=== PATIENT | female | born 1940 | race Caucasian/White ===

== ENCOUNTER 2018-04-08 20:05 | Observation (INO) | payer MEDICARE, SELFPAY ==
[2018-04-08] VITALS (16 sets, daily range): BP systolic 100–227; BP diastolic 47–211; PULSE 75–132; RESP 14–22; TEMP 36.7; O2SAT 79–100
--- NOTE | 2018-04-08 20:23 | DI.RAD.S_ITS ---
PROCEDURE: XR CHEST 1V INDICATIONS: altered mental status TECHNIQUE: One view of the chest was acquired. COMPARISON: None. FINDINGS: Surgical changes and devices: Cervical fixation plates are partially visualized. Lungs and pleura: There is an overall appearance of increased pulmonary vascularity. Minimal streaky opacity is present in the retrocardiac region. Mediastinum: Mediastinal contours appear normal. Heart size is normal. Bones and chest wall: No suspicious bony lesions. Overlying soft tissues appear unremarkable. IMPRESSION: Increased vascularity suggestive of edema. Streaky retrocardiac opacity is present. This could represent focal edema or developing pneumonia/atelectasis. Dictated by: Dori Abel M.D. on 04/08/2018 at 21:01 Approved by: Dori Abel M.D. on 04/08/2018 at 21:02
[2018-04-08] MEDS: LABETALOL 20 MG/4 ML SYRINGE 10 MG IV (20:26)
[2018-04-08] MEDS: LORazepam 2 MG/ML SYRINGE 1 MG IV (20:32)
[2018-04-08 20:45] LABS: Add Manual Diff / Slide Review NO; Basophils Percent Auto 0.9 % (0-2); Eosinophils Percent Auto 3.6 % (2-4); Hemoglobin 13.5 g/dL (12.0-16.0); Mean Corpuscular HGB Conc 32.9 % (30-36); Mean Corpuscular Hemoglobin 29.6 PG (26-34); Mean Corpuscular Volume 89.9 fL (80-100); Monocytes Percent Auto 10.9 % (3-14); Neutrophils Absolute Auto 3500 /uL (1500-7000); Neutrophils Percent Auto 54.6 % (50-75); Platelet Count 275 X10^3/uL (150-400); Red Blood Cell Count 4.56 X10^6/uL (4.0-5.2); White Blood Cell Count 6.4 X10^3/uL (4.5-11.0)
[2018-04-08 20:49] LABS: Prothrombin Time 34.8 SECONDS (10.1-12.7)
--- NOTE | 2018-04-08 20:51 | ED.AMS ---
HPI - Altered Mental Status General Chief Complaint: Altered Mental Status Stated Complaint: Unresponsive Time Seen by Provider: 04/08/18 20:22 Source: family and EMS Mode of arrival: EMS Limitations: altered mental status History of Present Illness HPI narrative: This is an 78-year-old female who comes to the emergency department with altered mental status. Patient was with family, they state that she stood seems sort of glazed and fell back onto the couch they state that they asked her what was wrong she was able to tell them that she did not feel. They state that they checked her sugar and she told him that she had taken sugar tabs and her sugar had been low. They gave her some juice as well as sandwich recheck her sugar and it was in the 70s. Patient did seem to have trouble getting her words out but otherwise did not have any weakness in her upper extremities, family checked to make sure they equal. They noticed no facial droop. Patient then seemed to get worse and more shaky. EMS came found the sugar was in the 60s gave her a amp of glucose and patient continued to be altered. They also gave her Narcan. Patient did have CBD or ill it did earlier today. This is something new she had never had before. She has known insulin-dependent diabetes, or family states she is on warfarin but they do not know her dosage or if she is still taking it or why she is taking it. Patient did not have any other complaints earlier today. She has chronic back pain which is why she asked about the CBD oil. She lives in [place]. Related Data Home Medications Medication Instructions Recorded Confirmed brinzolamide [Azopt] 1 drp EYE-BOTH BID 04/08/18 04/08/18 dorzolamide-timolol 1 drp EYE-BOTH BID 04/08/18 04/08/18 insulin glargine [Lantus Solostar SUBCUT DAILY 04/08/18 U-100 Insulin] insulin lispro [Humalog KwikPen 04/08/18 Insulin] lisinopril 40 mg PO DAILY 04/08/18 04/08/18 metformin 1 tab PO BID 04/08/18 04/08/18 nystatin [Nyamyc] 1 dose TOPICAL BID 04/08/18 04/08/18 omeprazole 20 mg PO DAILY 04/08/18 04/08/18 sertraline 50 mg PO DAILY 04/08/18 04/08/18 simvastatin 40 mg PO DAILY 04/08/18 04/08/18 tramadol 1 - 2 tab PO QID PRN 04/08/18 04/08/18 warfarin 6 mg PO DAILY 04/08/18 04/08/18 Allergies Allergy/AdvReac Type Severity Reaction Status Date / Time metronidazole [From FLAGYL] Allergy Mild Verified 04/08/18 20:46 meperidine Allergy Unknown Verified 04/08/18 20:46 Review of Systems Review of Systems unobtainable due to mental status Exam Narrative Exam Narrative: GEN: well nourished, well appearing elderly female, patient follows commands, she nods her head when asked if her name is now dry, she squeezes my hand when asked, patient is able to tell me she has pain but not able to me any information patient appears to be in severe distress. HEENT: Atraumatic, pupils are equal round non-reactive to light, 3mm bilaterally, extraocular movements are intact, nares are clear, TMs are clear with no fluid, there is no conjunctival pallor. Throat is clear without any exudates, erythema, tonsillar enlargement or uvular deviation, no facial droop. HEART: Tachycardic but regular rate and rhythm without murmur, clicks, rubs. No carotid bruits, pulses are equal in upper and lower extremities LUNGS:Lungs clear to auscultation, no wheezes, rales, crackles, chest moves symmetrically, no tachypnea. ABD: Bowel sounds normal, soft, non-tender, no guarding, rebound, rigidity, no masses noted, no hepatosplenomegaly :No CVA tenderness MSCL: Non-tender, no muscle atrophy, unable to test patient. NEURO:CN 2-12 intact, sensation normal, reflexes 2/4 upper and lower extremities. finger nose finger test unable to obtain, heel butler test unable to obtain. Tremulous, generalized. No tonic clonic activity. Initial Vital Signs Initial Vital Signs: Vital Signs Temperature 98.1 F 04/08/18 20:17 Pulse Rate 120 H 04/08/18 20:17 Respiratory Rate 20 04/08/18 20:17 Blood Pressure 219/120 H 04/08/18 20:17 Pulse Oximetry 100 04/08/18 20:17 Course Orders Ordered: ED Orders 04/08/18 20:16 EKG-12 Lead Stat 04/08/18 20:17 CT head/brain wo con Stat 04/08/18 20:22 Arterial Blood Gas Stat 04/08/18 20:23 XR chest 1V Stat 04/08/18 20:30 Complete Blood Count AUTO DIFF Stat Comprehensive Metabolic Panel Stat Ethanol (ETOH) Stat Lactate (Lactic Acid) Stat Partial Thromboplastin Time Stat Prolactin Stat Prothrombin Time INR Stat Thyroid Stimulating Hormone Stat Troponin I Stat 04/08/18 20:35 Arterial Blood Gas Stat B Type Natriuretic Peptide Stat 04/08/18 20:42 Urine Culture Stat Urine Drug Screen, Rapid Stat 04/08/18 20:50 CT angio head and neck Stat 04/08/18 21:25 Blood Culture Stat 04/08/18 23:50 Education, smoking cessation ONGOING 04/09/18 MR head/brain wo con Urgent US carotid doppler BI Routine Hemoglobin A1C % Routine 04/09/18 00:05 Consult to Discharge Planning Routine Consult to Occupational Therapy Evaluate & Treat Consult to Physical Therapy Evaluate & Treat 04/09/18 00:06 Consult to Dietitian, Adult Routine 04/09/18 02:00 Urinalysis and Microscopic Stat 04/09/18 05:00 Basic Metabolic Panel DAILY Complete Blood Count AUTO DIFF DAILY 04/10/18 05:00 Basic Metabolic Panel DAILY Complete Blood Count AUTO DIFF DAILY Prothrombin Time INR Routine 04/11/18 05:00 Basic Metabolic Panel DAILY Complete Blood Count AUTO DIFF DAILY 04/12/18 05:00 Basic Metabolic Panel DAILY Complete Blood Count AUTO DIFF DAILY 04/13/18 05:00 Basic Metabolic Panel DAILY Complete Blood Count AUTO DIFF DAILY 04/14/18 05:00 Basic Metabolic Panel DAILY Brinzolamide (Azopt) 1 drops EYE-BOTH BID [facility] Dextrose (D50w) 25 gm IV PRN PRN PRN Reason: Hypoglycemia Dorzolamide/Timolol (Cosopt Eye Drops) 1 drops EYE-BOTH BID [facility] Enalaprilat (Vasotec) 0.625 mg IV Q6H PRN PRN Reason: Hypertension Sodium Chloride (Normal Saline 0.9%) 1,000 mls @ 125 mls/hr IV CONT MICHAEL Last Admin: 04/09/18 01:03 Dose: 125 mls/hr Morphine Sulfate (Morphine Sulfate) 4 mg IV Q4H PRN PRN Reason: Pain, Moderate (4-6) Discontinued Medications Sodium Chloride (Normal Saline 0.9%) 1,000 mls @ 150 mls/hr IV CONT MICHAEL Last Infusion: 04/08/18 23:55 Dose: 0 mls/hr Admin: 04/08/18 21:27 Dose: 150 mls/hr Sodium Chloride (Normal Saline 0.9%) 1,000 mls @ 1,000 mls/hr IV BOLUS ONE Stop: 04/08/18 22:34 Last Admin: 04/08/18 21:40 Dose: Insulin Aspart (Novolog) 1 unit SUBCUT NOW ONE; Protocol Stop: 04/09/18 00:14 Last Admin: 04/09/18 01:13 Dose: Not Given Labetalol HCl (Trandate) 10 mg IV NOW ONE Stop: 04/08/18 20:34 Last Admin: 04/08/18 20:26 Dose: 10 mg Lorazepam (Ativan) 1 mg IV NOW ONE Stop: 04/08/18 20:34 Last Admin: 04/08/18 20:32 Dose: 1 mg Naloxone HCl (Narcan) 0.4 mg IV NOW ONE Stop: 04/08/18 21:51 Last Admin: 04/08/18 21:51 Dose: 0.4 mg Vital Signs - 8 hr 04/08/18 21:00 04/08/18 21:09 04/08/18 21:27 Temperature Pulse Rate 86 90 86 Respiratory Rate 14 22 Blood Pressure Blood Pressure [Left Arm] 114/61 105/75 Pulse Oximetry 91 100 04/08/18 22:32 04/08/18 23:12 04/08/18 23:14 Temperature Pulse Rate 82 81 80 Respiratory Rate 20 20 14 Blood Pressure Blood Pressure [Left Arm] 121/47 L 111/49 L 111/49 L Pulse Oximetry 100 79 L 100 04/08/18 23:19 04/08/18 23:45 04/09/18 01:01 Temperature 97.7 F Pulse Rate 75 74 Respiratory Rate 16 18 Blood Pressure 136/63 Blood Pressure [Left Arm] 120/53 L Pulse Oximetry 100 100 99 04/09/18 04:34 Temperature 97.6 F Pulse Rate 76 Respiratory Rate 16 Blood Pressure 149/89 H Blood Pressure [Left Arm] Pulse Oximetry 99 MDM - Altered Mental Status Lab Data Attestation: I reviewed the patient's lab results. Result diagrams: 04/08/18 20:30 04/08/18 20:30 Lab Results 04/08/18 04/08/18 04/08/18 Range/Units 20:30 20:30 20:30 WBC 6.4 (4.5-11.0) X10^3/uL RBC 4.56 (4.0-5.2) X10^6/uL Hgb 13.5 (12.0-16.0) g/dL Hct 41.0 (36-46) % MCV 89.9 (80-100) fL MCH 29.6 (26-34) PG MCHC 32.9 (30-36) % RDW 14.0 (11.6-14.8) % Plt Count 275 (150-400) X10^3/uL Neut % (Auto) 54.6 (50-75) % Lymph % (Auto) 30.0 (25-40) % [place] % (Auto) 10.9 (3-14) % Eos % (Auto) 3.6 (2-4) % Baso % (Auto) 0.9 (0-2) % Neut # (Auto) 3500 (3051-2529) /uL PT 34.8 H (10.1-12.7) SECONDS INR 3.0 H (0.9-1.3) APTT 54 H (26.4-36.2) SECONDS ABG pH (7.35-7.45) ABG pCO2 (35-45) mmHg ABG pO2 (80-100) mmHg ABG HCO3 (22-26) mmol/L ABG Total CO2 (21-31) mmol/L ABG O2 Saturation (95-100) % ABG Base Excess (-2-2) mmol/L FiO2 Sodium 143 (137-145) mmol/L Potassium 4.8 (3.4-5.1) mmol/L Chloride 103 (98-107) mmol/L Carbon Dioxide 28 (22-32) mmol/L BUN 24 H (7-17) mg/dL Creatinine 0.70 (0.52-1.04) mg/dL Estimated GFR > 60.0 (>60) mL/min BUN/Creatinine Ratio 34.3 H (6-22) Glucose 160 H (80-110) mg/dL Lactate (0.7-2.1) mmol/L Calcium 9.5 (8.4-10.2) mg/dL Total Bilirubin 0.6 (0.2-1.3) mg/dL AST 31 (14-36) IU/L ALT 28 (9-52) IU/L Alkaline Phosphatase 86 (38-126) U/L Troponin I < 0.012 (0.01-0.034) ng/mL B-Natriuretic Peptide (<100) Total Protein 8.0 (6.3-8.2) g/dL Albumin 4.7 (3.5-5.0) g/dL Globulin 3.3 (1.7-4.1) g/dL Albumin/Globulin Ratio 1.4 (1.0-2.8) TSH (0.47-4.68) uIU/mL Prolactin 23.9 H (3.0-18.6) ng/mL Urine Color Urine Appearance Urine pH (4.5-8.0) Ur Specific [place] (1.000-1.035) Urine Protein (Negative) Urine Glucose (UA) (Normal) g/dL Urine Ketones (NEGATIVE) Urine Occult Blood (Negative) Urine Nitrate (Negative) Urine Bilirubin (NEGATIVE) Urine Urobilinogen (0.2) E.U./dL Ur Leukocyte Esterase (NEGATIVE) Urine RBC (0-5/HPF) Urine WBC (0-5/HPF) Urine Bacteria (None) Ur Culture Indicated? Micro UA Comment Urine Opiates Screen (Negative) Ur Oxycodone Screen (Negative) Urine Methadone Screen (Negative) Ur Barbiturates Screen (Negative) U Tricyclic Antidepress (Negative) Ur Phencyclidine Scrn (Negative) Ur Amphetamines Screen (Negative) U Methamphetamines Scrn (Negative) Ur MDMA Scrn (Ecstasy) (Negative) U Benzodiazepines Scrn (Negative) Urine Cocaine Screen (Negative) U Marijuana (THC) Screen (Negative) Ethyl Alcohol < 10 mg/dL 04/08/18 04/08/18 04/08/18 Range/Units 20:30 20:30 20:35 WBC (4.5-11.0) X10^3/uL RBC (4.0-5.2) X10^6/uL Hgb (12.0-16.0) g/dL Hct (36-46) % MCV (80-100) fL MCH (26-34) PG MCHC (30-36) % RDW (11.6-14.8) % Plt Count (150-400) X10^3/uL Neut % (Auto) (50-75) % Lymph % (Auto) (25-40) % [place] % (Auto) (3-14) % Eos % (Auto) (2-4) % Baso % (Auto) (0-2) % Neut # (Auto) (8571-2046) /uL PT (10.1-12.7) SECONDS INR (0.9-1.3) APTT (26.4-36.2) SECONDS ABG pH 7.32 L (7.35-7.45) ABG pCO2 47.7 H (35-45) mmHg ABG pO2 65 L (80-100) mmHg ABG HCO3 25 (22-26) mmol/L ABG Total CO2 26 (21-31) mmol/L ABG O2 Saturation 91 L (95-100) % ABG Base Excess -1.0 (-2-2) mmol/L FiO2 21 Sodium (137-145) mmol/L Potassium (3.4-5.1) mmol/L Chloride (98-107) mmol/L Carbon Dioxide (22-32) mmol/L BUN (7-17) mg/dL Creatinine (0.52-1.04) mg/dL Estimated GFR (>60) mL/min BUN/Creatinine Ratio (6-22) Glucose (80-110) mg/dL Lactate 1.3 (0.7-2.1) mmol/L Calcium (8.4-10.2) mg/dL Total Bilirubin (0.2-1.3) mg/dL AST (14-36) IU/L ALT (9-52) IU/L Alkaline Phosphatase (38-126) U/L Troponin I (0.01-0.034) ng/mL B-Natriuretic Peptide (<100) Total Protein (6.3-8.2) g/dL Albumin (3.5-5.0) g/dL Globulin (1.7-4.1) g/dL Albumin/Globulin Ratio (1.0-2.8) TSH 2.61 (0.47-4.68) uIU/mL Prolactin (3.0-18.6) ng/mL Urine Color Urine Appearance Urine pH (4.5-8.0) Ur Specific [place] (1.000-1.035) Urine Protein (Negative) Urine Glucose (UA) (Normal) g/dL Urine Ketones (NEGATIVE) Urine Occult Blood (Negative) Urine Nitrate (Negative) Urine Bilirubin (NEGATIVE) Urine Urobilinogen (0.2) E.U./dL Ur Leukocyte Esterase (NEGATIVE) Urine RBC (0-5/HPF) Urine WBC (0-5/HPF) Urine Bacteria (None) Ur Culture Indicated? Micro UA Comment Urine Opiates Screen (Negative) Ur Oxycodone Screen (Negative) Urine Methadone Screen (Negative) Ur Barbiturates Screen (Negative) U Tricyclic Antidepress (Negative) Ur Phencyclidine Scrn (Negative) Ur Amphetamines Screen (Negative) U Methamphetamines Scrn (Negative) Ur MDMA Scrn (Ecstasy) (Negative) U Benzodiazepines Scrn (Negative) Urine Cocaine Screen (Negative) U Marijuana (THC) Screen (Negative) Ethyl Alcohol mg/dL 04/08/18 04/08/18 04/09/18 Range/Units 20:35 20:42 02:00 WBC (4.5-11.0) X10^3/uL RBC (4.0-5.2) X10^6/uL Hgb (12.0-16.0) g/dL Hct (36-46) % MCV (80-100) fL MCH (26-34) PG MCHC (30-36) % RDW (11.6-14.8) % Plt Count (150-400) X10^3/uL Neut % (Auto) (50-75) % Lymph % (Auto) (25-40) % [place] % (Auto) (3-14) % Eos % (Auto) (2-4) % Baso % (Auto) (0-2) % Neut # (Auto) (8680-4130) /uL PT (10.1-12.7) SECONDS INR (0.9-1.3) APTT (26.4-36.2) SECONDS ABG pH (7.35-7.45) ABG pCO2 (35-45) mmHg ABG pO2 (80-100) mmHg ABG HCO3 (22-26) mmol/L ABG Total CO2 (21-31) mmol/L ABG O2 Saturation (95-100) % ABG Base Excess (-2-2) mmol/L FiO2 Sodium (137-145) mmol/L Potassium (3.4-5.1) mmol/L Chloride (98-107) mmol/L Carbon Dioxide (22-32) mmol/L BUN (7-17) mg/dL Creatinine (0.52-1.04) mg/dL Estimated GFR (>60) mL/min BUN/Creatinine Ratio (6-22) Glucose (80-110) mg/dL Lactate (0.7-2.1) mmol/L Calcium (8.4-10.2) mg/dL Total Bilirubin (0.2-1.3) mg/dL AST (14-36) IU/L ALT (9-52) IU/L Alkaline Phosphatase (38-126) U/L Troponin I (0.01-0.034) ng/mL B-Natriuretic Peptide < 100 (<100) Total Protein (6.3-8.2) g/dL Albumin (3.5-5.0) g/dL Globulin (1.7-4.1) g/dL Albumin/Globulin Ratio (1.0-2.8) TSH (0.47-4.68) uIU/mL Prolactin (3.0-18.6) ng/mL Urine Color Yellow Urine Appearance Clear Urine pH 5.0 (4.5-8.0) Ur Specific [place] 1.015 (1.000-1.035) Urine Protein Negative (Negative) Urine Glucose (UA) Negative (Normal) g/dL Urine Ketones Negative (NEGATIVE) Urine Occult Blood 2+ H (Negative) Urine Nitrate Negative (Negative) Urine Bilirubin Negative (NEGATIVE) Urine Urobilinogen 0.2 (0.2) E.U./dL Ur Leukocyte Esterase Negative (NEGATIVE) Urine RBC 1-5/hpf (0-5/HPF) Urine WBC 0-1/hpf (0-5/HPF) Urine Bacteria None seen (None) Ur Culture Indicated? Cult not indicated Micro UA Comment Not Reportable Urine Opiates Screen Negative (Negative) Ur Oxycodone Screen Positive H (Negative) Urine Methadone Screen Negative (Negative) Ur Barbiturates Screen Negative (Negative) U Tricyclic Antidepress Negative (Negative) Ur Phencyclidine Scrn Negative (Negative) Ur Amphetamines Screen Negative (Negative) U Methamphetamines Scrn Negative (Negative) Ur MDMA Scrn (Ecstasy) Negative (Negative) U Benzodiazepines Scrn Negative (Negative) Urine Cocaine Screen Negative (Negative) U Marijuana (THC) Screen Positive H (Negative) Ethyl Alcohol mg/dL Point of Care Testing Glucose POC [address] scan - head: Radiologist's impression: motion present throughout the examination, limiting areas of evaluation, However no gross acute intracranial process. Moderate atrophya nd chronic microvascular ischemic changes. Angio Head/neck: Radiologist's impression: [address] [address] [address] Scan Report Signed Patient: Lyubov Prater MR#: [id number] : 1940 Acct:[id number] Age/Sex: 78 / F Date of Service: 04/08/18 Loc: ED Accession Number: [id number] Procedure: CT angio head and neck Ordering Provider: Coby Espino D.O. PROCEDURE: CT ANGIO HEAD AND NECK INDICATIONS: altered mental status, difficulty with speech TECHNIQUE: Pre-contrast 4.5 mm thick sections acquired from the foramen magnum to the vertex. After the administration of intravenous contrast, 1 mm thick sections acquired from the aortic arch through the [place] of [place]. Post-contrast 4.5 mm thick sections then re-acquired from the foramen magnum to the vertex. 3-dimensional bhcteyb-dpsnisjxy-xcbgxeequc (MIP) and/or volume rendering reformats were acquired of the central intracranial vasculature and neck separately. COMPARISON: [facility], CT, CT HEAD/BRAIN WO CON, 04/08/2018, 20:10. FINDINGS: Image quality: Excellent. BRAIN: The ventricular system and cortical sulci demonstrate atrophy, consistent for the patient's stated age. There are areas of hypodensity within the periventricular and subcortical white matter. There is no acute intra-or extra axial fluid collection. No acute hemorrhage, mass lesion or midline shift. Brainstem is unremarkable. Globes are symmetrical. Sinuses are aerated. Osseous structures are intact. HEAD CT ANGIOGRAPHY: Anterior circulation: Intracranial internal carotid arteries are normal in size and flow. The flow within the paired anterior cerebral arteries is normal and symmetric. The flow within the middle cerebral arteries is normal and symmetric. The anterior communicating artery is seen. No aneurysms are seen. Posterior circulation: Visualized portions of the vertebral arteries demonstrate normal caliber, and join to form a normal appearing basilar artery. Flow within the posterior cerebral arteries is normal and symmetric. No aneurysms are seen. NECK CT ANGIOGRAPHY: The origins of the left and right common, internal and external carotid arteries demonstrate no areas of hemodynamically significant stenosis, vascular occlusion or aneurysmal dilation. Origins of the left and right vertebral arteries demonstrate no areas of hemodynamically significant stenosis, vascular occlusion or aneurysmal dilation. Aortic arch demonstrates conventional anatomy. Limited, visualized portions subclavian vasculature are unremarkable. IMPRESSION: 1. No acute intracranial process. 2. Moderate atrophy and chronic microvascular ischemic changes. 3. No areas of hemodynamically significant stenosis, vascular occlusion or aneurysmal dilation within the anterior or posterior circulation. 4. No areas of hemodynamically significant stenosis, vascular occlusion or aneurysmal dilation within the neck vasculature. Any quantitative measurements of stenosis were performed using NASCET criteria. Dictated by: Dori Abel M.D. on 04/08/2018 at 21:23 Approved by: Dori Abel M.D. on 04/08/2018 at 21:31 Chest x-ray: Radiologist's impression: [place] [address] XRay Report Signed Patient: Luybov Prater MR#: [id number] : 1940 Acct:[id number] Age/Sex: 78 / F Date of Service: 04/08/18 Loc: ED Accession Number: [id number] Procedure: XR chest 1V Ordering Provider: Coby Espino D.O. PROCEDURE: XR CHEST 1V INDICATIONS: altered mental status TECHNIQUE: One view of the chest was acquired. COMPARISON: None. FINDINGS: Surgical changes and devices: Cervical fixation plates are partially visualized. Lungs and pleura: There is an overall appearance of increased pulmonary vascularity. Minimal streaky opacity is present in the retrocardiac region. Mediastinum: Mediastinal contours appear normal. Heart size is normal. Bones and chest wall: No suspicious bony lesions. Overlying soft tissues appear unremarkable. IMPRESSION: Increased vascularity suggestive of edema. Streaky retrocardiac opacity is present. This could represent focal edema or developing pneumonia/atelectasis. Dictated by: Dori Abel M.D. on 04/08/2018 at 21:01 Approved by: Dori Abel M.D. on 04/08/2018 at 21:02 ECG Data Attestation: I personally reviewed and interpreted this ECG as follows: Prior ECG tracings: not available for review Interpretation: Sinus rhythm with a rate of 98 P are 151 QRS of 79 QTC of 381. No ST elevation or depression. MDM Narrative Medical decision making narrative: Patient comes in with kind of gradual worsening of altered mental status for about an hour today. Patient by description does not sound clearly like a stroke although could be. She is not a tPA candidate secondary to her elevated INR at 3 because she is on Coumadin. CTA does not show any acute occlusion patient does have an elevated prolactin, she has had some tremor illicit this but no clear seizure-like activity, non witnessed by EMS and by description on from the family. Patient does show some lab abnormalities. She did seem to have a very mild response to Narcan. Discussed with hospitalist area piece got and they except for admission. Spoke with family both sides agree that patient had told the with the past that she wished to be DNR/DNI with aggressive interventions. They are comfortable with medical management. Discharge Plan Departure Patient Disposition: Admitted As Inpatient Clinical Impression: Altered mental status Discharge Date/Time: 04/09/18 00:14 Interventions: ED Discharge Assessment Last Done: 04/09/18 00:14 Admit Date/Time: 04/08/18 22:39 Admit Provider: Nj José
[2018-04-08 20:52] LABS: PTT Partial Thromboplastin Tim 54 SECONDS (26.4-36.2)
[2018-04-08 20:53] LABS: Fractionated Inspired Oxygen 21; HCO3 ABG 25 mmol/L (22-26); Oxygen Saturation ABG 91 % (95-100); PCO2 ABG 47.7 mmHg (35-45); PO2 ABG 65 mmHg (80-100); TCO2 ABG 26 mmol/L (21-31); pH ABG 7.32 (7.35-7.45)
[2018-04-08 20:53] LABS: Alanine Aminotransferase 28 IU/L (9-52); Albumin 4.7 g/dL (3.5-5.0); Albumin Globulin Ratio 1.4 (1.0-2.8); Alkaline Phosphatase 86 U/L (38-126); Aspartate Aminotransferase 31 IU/L (14-36); BUN Creatinine Ratio 34.3 (6-22); Bilirubin Total 0.6 mg/dL (0.2-1.3); Blood Urea Nitrogen 24 mg/dL (7-17); Calcium 9.5 mg/dL (8.4-10.2); Carbon Dioxide 28 mmol/L (22-32); Chloride 103 mmol/L (98-107); Estimated Glomerular Filt Rate > 60.0 mL/min (>60); Ethanol (ETOH) < 10 mg/dL; Globulin 3.3 g/dL (1.7-4.1); Glucose 160 mg/dL (80-110); HEMOLYSIS < 15 (0-50); Lactate (Lactic Acid) 1.3 mmol/L (0.7-2.1); Potassium 4.8 mmol/L (3.4-5.1); Sodium 143 mmol/L (137-145)
--- NOTE | 2018-04-08 20:56 | ED_ITS ---
HPI - Altered Mental Status General Chief Complaint: Altered Mental Status Stated Complaint: Unresponsive Time Seen by Provider: 04/08/18 20:22 Source: family and EMS Mode of arrival: EMS Limitations: altered mental status History of Present Illness HPI narrative: This is an 78-year-old female who comes to the emergency department with altered mental status. Patient was with family, they state that she stood seems sort of glazed and fell back onto the couch they state that they asked her what was wrong she was able to tell them that she did not feel. They state that they checked her sugar and she told him that she had taken sugar tabs and her sugar had been low. They gave her some juice as well as sandwich recheck her sugar and it was in the 70s. Patient did seem to have trouble getting her words out but otherwise did not have any weakness in her upper extremities, family checked to make sure they equal. They noticed no facial droop. Patient then seemed to get worse and more shaky. EMS came found the sugar was in the 60s gave her a amp of glucose and patient continued to be altered. They also gave her Narcan. Patient did have CBD or ill it did earlier today. This is something new she had never had before. She has known insulin-dependent diabetes, or family states she is on warfarin but they do not know her dosage or if she is still taking it or why she is taking it. Patient did not have any other complaints earlier today. She has chronic back pain which is why she asked about the CBD oil. She lives in [place]. Related Data Home Medications Medication Instructions Recorded Confirmed brinzolamide [Azopt] 1 drp EYE-BOTH BID 04/08/18 04/08/18 dorzolamide-timolol 1 drp EYE-BOTH BID 04/08/18 04/08/18 insulin glargine [Lantus Solostar SUBCUT DAILY 04/08/18 U-100 Insulin] insulin lispro [Humalog KwikPen 04/08/18 Insulin] lisinopril 40 mg PO DAILY 04/08/18 04/08/18 metformin 1 tab PO BID 04/08/18 04/08/18 nystatin [Nyamyc] 1 dose TOPICAL BID 04/08/18 04/08/18 omeprazole 20 mg PO DAILY 04/08/18 04/08/18 sertraline 50 mg PO DAILY 04/08/18 04/08/18 simvastatin 40 mg PO DAILY 04/08/18 04/08/18 tramadol 1 - 2 tab PO QID PRN 04/08/18 04/08/18 warfarin 6 mg PO DAILY 04/08/18 04/08/18 Allergies Allergy/AdvReac Type Severity Reaction Status Date / Time metronidazole [From FLAGYL] Allergy Mild Verified 04/08/18 20:46 meperidine Allergy Unknown Verified 04/08/18 20:46 Review of Systems Review of Systems unobtainable due to mental status Exam Narrative Exam Narrative: GEN: well nourished, well appearing elderly female, patient follows commands, she nods her head when asked if her name is now dry, she squeezes my hand when asked, patient is able to tell me she has pain but not able to me any information patient appears to be in severe distress. HEENT: Atraumatic, pupils are equal round non-reactive to light, 3mm bilaterally , extraocular movements are intact, nares are clear, TMs are clear with no fluid , there is no conjunctival pallor. Throat is clear without any exudates, erythema, tonsillar enlargement or uvular deviation, no facial droop. HEART: Tachycardic but regular rate and rhythm without murmur, clicks, rubs. No carotid bruits, pulses are equal in upper and lower extremities LUNGS:Lungs clear to auscultation, no wheezes, rales, crackles, chest moves symmetrically, no tachypnea. ABD: Bowel sounds normal, soft, non-tender, no guarding, rebound, rigidity, no masses noted, no hepatosplenomegaly :No CVA tenderness MSCL: Non-tender, no muscle atrophy, unable to test patient. NEURO:CN 2-12 intact, sensation normal, reflexes 2/4 upper and lower extremities. finger nose finger test unable to obtain, heel butler test unable to obtain. Tremulous, generalized. No tonic clonic activity. Initial Vital Signs Initial Vital Signs: Vital Signs Temperature 98.1 F 04/08/18 20:17 Pulse Rate 120 H 04/08/18 20:17 Respiratory Rate 20 04/08/18 20:17 Blood Pressure 219/120 H 04/08/18 20:17 Pulse Oximetry 100 04/08/18 20:17 Course Orders Ordered: ED Orders 04/08/18 20:16 EKG-12 Lead Stat 04/08/18 20:17 CT head/brain wo con Stat 04/08/18 20:22 Arterial Blood Gas Stat 04/08/18 20:23 XR chest 1V Stat 04/08/18 20:30 Complete Blood Count AUTO DIFF Stat Comprehensive Metabolic Panel Stat Ethanol (ETOH) Stat Lactate (Lactic Acid) Stat Partial Thromboplastin Time Stat Prolactin Stat Prothrombin Time INR Stat Thyroid Stimulating Hormone Stat Troponin I Stat 04/08/18 20:35 Arterial Blood Gas Stat B Type Natriuretic Peptide Stat 04/08/18 20:42 Urine Culture Stat Urine Drug Screen, Rapid Stat 04/08/18 20:50 CT angio head and neck Stat 04/08/18 21:25 Blood Culture Stat 04/08/18 23:50 Education, smoking cessation ONGOING 04/09/18 MR head/brain wo con Urgent US carotid doppler BI Routine Hemoglobin A1C % Routine 04/09/18 00:05 Consult to Discharge Planning Routine Consult to Occupational Therapy Evaluate & Treat Consult to Physical Therapy Evaluate & Treat 04/09/18 00:06 Consult to Dietitian, Adult Routine 04/09/18 02:00 Urinalysis and Microscopic Stat 04/09/18 05:00 Basic Metabolic Panel DAILY Complete Blood Count AUTO DIFF DAILY 04/10/18 05:00 Basic Metabolic Panel DAILY Complete Blood Count AUTO DIFF DAILY Prothrombin Time INR Routine 04/11/18 05:00 Basic Metabolic Panel DAILY Complete Blood Count AUTO DIFF DAILY 04/12/18 05:00 Basic Metabolic Panel DAILY Complete Blood Count AUTO DIFF DAILY 04/13/18 05:00 Basic Metabolic Panel DAILY Complete Blood Count AUTO DIFF DAILY 04/14/18 05:00 Basic Metabolic Panel DAILY Brinzolamide (Azopt) 1 drops EYE-BOTH BID [facility] Dextrose (D50w) 25 gm IV PRN PRN PRN Reason: Hypoglycemia Dorzolamide/Timolol (Cosopt Eye Drops) 1 drops EYE-BOTH BID [facility] Enalaprilat (Vasotec) 0.625 mg IV Q6H PRN PRN Reason: Hypertension Sodium Chloride (Normal Saline 0.9%) 1,000 mls @ 125 mls/hr IV CONT MICHAEL Last Admin: 04/09/18 01:03 Dose: 125 mls/hr Morphine Sulfate (Morphine Sulfate) 4 mg IV Q4H PRN PRN Reason: Pain, Moderate (4-6) Discontinued Medications Sodium Chloride (Normal Saline 0.9%) 1,000 mls @ 150 mls/hr IV CONT MICHAEL Last Infusion: 04/08/18 23:55 Dose: 0 mls/hr Admin: 04/08/18 21:27 Dose: 150 mls/hr Sodium Chloride (Normal Saline 0.9%) 1,000 mls @ 1,000 mls/hr IV BOLUS ONE Stop: 04/08/18 22:34 Last Admin: 04/08/18 21:40 Dose: Insulin Aspart (Novolog) 1 unit SUBCUT NOW ONE; Protocol Stop: 04/09/18 00:14 Last Admin: 04/09/18 01:13 Dose: Not Given Labetalol HCl (Trandate) 10 mg IV NOW ONE Stop: 04/08/18 20:34 Last Admin: 04/08/18 20:26 Dose: 10 mg Lorazepam (Ativan) 1 mg IV NOW ONE Stop: 04/08/18 20:34 Last Admin: 04/08/18 20:32 Dose: 1 mg Naloxone HCl (Narcan) 0.4 mg IV NOW ONE Stop: 04/08/18 21:51 Last Admin: 04/08/18 21:51 Dose: 0.4 mg Vital Signs - 8 hr 04/08/18 21:00 04/08/18 21:09 04/08/18 21:27 Temperature Pulse Rate 86 90 86 Respiratory Rate 14 22 Blood Pressure Blood Pressure [Left Arm] 114/61 105/75 Pulse Oximetry 91 100 04/08/18 22:32 04/08/18 23:12 04/08/18 23:14 Temperature Pulse Rate 82 81 80 Respiratory Rate 20 20 14 Blood Pressure Blood Pressure [Left Arm] 121/47 L 111/49 L 111/49 L Pulse Oximetry 100 79 L 100 04/08/18 23:19 04/08/18 23:45 04/09/18 01:01 Temperature 97.7 F Pulse Rate 75 74 Respiratory Rate 16 18 Blood Pressure 136/63 Blood Pressure [Left Arm] 120/53 L Pulse Oximetry 100 100 99 04/09/18 04:34 Temperature 97.6 F Pulse Rate 76 Respiratory Rate 16 Blood Pressure 149/89 H Blood Pressure [Left Arm] Pulse Oximetry 99 MDM - Altered Mental Status Lab Data Attestation: I reviewed the patient's lab results. Result diagrams: 04/08/18 20:30 04/08/18 20:30 Lab Results 04/08/18 04/08/18 04/08/18 Range/Units 20:30 20:30 20:30 WBC 6.4 (4.5-11.0) X10^3/uL RBC 4.56 (4.0-5.2) X10^6/uL Hgb 13.5 (12.0-16.0) g/dL Hct 41.0 (36-46) % MCV 89.9 (80-100) fL MCH 29.6 (26-34) PG MCHC 32.9 (30-36) % RDW 14.0 (11.6-14.8) % Plt Count 275 (150-400) X10^3/uL Neut % (Auto) 54.6 (50-75) % Lymph % (Auto) 30.0 (25-40) % [place] % (Auto) 10.9 (3-14) % Eos % (Auto) 3.6 (2-4) % Baso % (Auto) 0.9 (0-2) % Neut # (Auto) 3500 (6298-3840) /uL PT 34.8 H (10.1-12.7) SECONDS INR 3.0 H (0.9-1.3) APTT 54 H (26.4-36.2) SECONDS ABG pH (7.35-7.45) ABG pCO2 (35-45) mmHg ABG pO2 (80-100) mmHg ABG HCO3 (22-26) mmol/L ABG Total CO2 (21-31) mmol/L ABG O2 Saturation (95-100) % ABG Base Excess (-2-2) mmol/L FiO2 Sodium 143 (137-145) mmol/L Potassium 4.8 (3.4-5.1) mmol/L Chloride 103 (98-107) mmol/L Carbon Dioxide 28 (22-32) mmol/L BUN 24 H (7-17) mg/dL Creatinine 0.70 (0.52-1.04) mg/dL Estimated GFR > 60.0 (>60) mL/min BUN/Creatinine Ratio 34.3 H (6-22) Glucose 160 H (80-110) mg/dL Lactate (0.7-2.1) mmol/L Calcium 9.5 (8.4-10.2) mg/dL Total Bilirubin 0.6 (0.2-1.3) mg/dL AST 31 (14-36) IU/L ALT 28 (9-52) IU/L Alkaline Phosphatase 86 (38-126) U/L Troponin I < 0.012 (0.01-0.034) ng/mL B-Natriuretic Peptide (<100) Total Protein 8.0 (6.3-8.2) g/dL Albumin 4.7 (3.5-5.0) g/dL Globulin 3.3 (1.7-4.1) g/dL Albumin/Globulin Ratio 1.4 (1.0-2.8) TSH (0.47-4.68) uIU/mL Prolactin 23.9 H (3.0-18.6) ng/mL Urine Color Urine Appearance Urine pH (4.5-8.0) Ur Specific [place] (1.000-1.035) Urine Protein (Negative) Urine Glucose (UA) (Normal) g/dL Urine Ketones (NEGATIVE) Urine Occult Blood (Negative) Urine Nitrate (Negative) Urine Bilirubin (NEGATIVE) Urine Urobilinogen (0.2) E.U./dL Ur Leukocyte Esterase (NEGATIVE) Urine RBC (0-5/HPF) Urine WBC (0-5/HPF) Urine Bacteria (None) Ur Culture Indicated? Micro UA Comment Urine Opiates Screen (Negative) Ur Oxycodone Screen (Negative) Urine Methadone Screen (Negative) Ur Barbiturates Screen (Negative) U Tricyclic Antidepress (Negative) Ur Phencyclidine Scrn (Negative) Ur Amphetamines Screen (Negative) U Methamphetamines Scrn (Negative) Ur MDMA Scrn (Ecstasy) (Negative) U Benzodiazepines Scrn (Negative) Urine Cocaine Screen (Negative) U Marijuana (THC) Screen (Negative) Ethyl Alcohol < 10 mg/dL 04/08/18 04/08/18 04/08/18 Range/Units 20:30 20:30 20:35 WBC (4.5-11.0) X10^3/uL RBC (4.0-5.2) X10^6/uL Hgb (12.0-16.0) g/dL Hct (36-46) % MCV (80-100) fL MCH (26-34) PG MCHC (30-36) % RDW (11.6-14.8) % Plt Count (150-400) X10^3/uL Neut % (Auto) (50-75) % Lymph % (Auto) (25-40) % [place] % (Auto) (3-14) % Eos % (Auto) (2-4) % Baso % (Auto) (0-2) % Neut # (Auto) (3026-1113) /uL PT (10.1-12.7) SECONDS INR (0.9-1.3) APTT (26.4-36.2) SECONDS ABG pH 7.32 L (7.35-7.45) ABG pCO2 47.7 H (35-45) mmHg ABG pO2 65 L (80-100) mmHg ABG HCO3 25 (22-26) mmol/L ABG Total CO2 26 (21-31) mmol/L ABG O2 Saturation 91 L (95-100) % ABG Base Excess -1.0 (-2-2) mmol/L FiO2 21 Sodium (137-145) mmol/L Potassium (3.4-5.1) mmol/L Chloride (98-107) mmol/L Carbon Dioxide (22-32) mmol/L BUN (7-17) mg/dL Creatinine (0.52-1.04) mg/dL Estimated GFR (>60) mL/min BUN/Creatinine Ratio (6-22) Glucose (80-110) mg/dL Lactate 1.3 (0.7-2.1) mmol/L Calcium (8.4-10.2) mg/dL Total Bilirubin (0.2-1.3) mg/dL AST (14-36) IU/L ALT (9-52) IU/L Alkaline Phosphatase (38-126) U/L Troponin I (0.01-0.034) ng/mL B-Natriuretic Peptide (<100) Total Protein (6.3-8.2) g/dL Albumin (3.5-5.0) g/dL Globulin (1.7-4.1) g/dL Albumin/Globulin Ratio (1.0-2.8) TSH 2.61 (0.47-4.68) uIU/mL Prolactin (3.0-18.6) ng/mL Urine Color Urine Appearance Urine pH (4.5-8.0) Ur Specific [place] (1.000-1.035) Urine Protein (Negative) Urine Glucose (UA) (Normal) g/dL Urine Ketones (NEGATIVE) Urine Occult Blood (Negative) Urine Nitrate (Negative) Urine Bilirubin (NEGATIVE) Urine Urobilinogen (0.2) E.U./dL Ur Leukocyte Esterase (NEGATIVE) Urine RBC (0-5/HPF) Urine WBC (0-5/HPF) Urine Bacteria (None) Ur Culture Indicated? Micro UA Comment Urine Opiates Screen (Negative) Ur Oxycodone Screen (Negative) Urine Methadone Screen (Negative) Ur Barbiturates Screen (Negative) U Tricyclic Antidepress (Negative) Ur Phencyclidine Scrn (Negative) Ur Amphetamines Screen (Negative) U Methamphetamines Scrn (Negative) Ur MDMA Scrn (Ecstasy) (Negative) U Benzodiazepines Scrn (Negative) Urine Cocaine Screen (Negative) U Marijuana (THC) Screen (Negative) Ethyl Alcohol mg/dL 04/08/18 04/08/18 04/09/18 Range/Units 20:35 20:42 02:00 WBC (4.5-11.0) X10^3/uL RBC (4.0-5.2) X10^6/uL Hgb (12.0-16.0) g/dL Hct (36-46) % MCV (80-100) fL MCH (26-34) PG MCHC (30-36) % RDW (11.6-14.8) % Plt Count (150-400) X10^3/uL Neut % (Auto) (50-75) % Lymph % (Auto) (25-40) % [place] % (Auto) (3-14) % Eos % (Auto) (2-4) % Baso % (Auto) (0-2) % Neut # (Auto) (4545-8708) /uL PT (10.1-12.7) SECONDS INR (0.9-1.3) APTT (26.4-36.2) SECONDS ABG pH (7.35-7.45) ABG pCO2 (35-45) mmHg ABG pO2 (80-100) mmHg ABG HCO3 (22-26) mmol/L ABG Total CO2 (21-31) mmol/L ABG O2 Saturation (95-100) % ABG Base Excess (-2-2) mmol/L FiO2 Sodium (137-145) mmol/L Potassium (3.4-5.1) mmol/L Chloride (98-107) mmol/L Carbon Dioxide (22-32) mmol/L BUN (7-17) mg/dL Creatinine (0.52-1.04) mg/dL Estimated GFR (>60) mL/min BUN/Creatinine Ratio (6-22) Glucose (80-110) mg/dL Lactate (0.7-2.1) mmol/L Calcium (8.4-10.2) mg/dL Total Bilirubin (0.2-1.3) mg/dL AST (14-36) IU/L ALT (9-52) IU/L Alkaline Phosphatase (38-126) U/L Troponin I (0.01-0.034) ng/mL B-Natriuretic Peptide < 100 (<100) Total Protein (6.3-8.2) g/dL Albumin (3.5-5.0) g/dL Globulin (1.7-4.1) g/dL Albumin/Globulin Ratio (1.0-2.8) TSH (0.47-4.68) uIU/mL Prolactin (3.0-18.6) ng/mL Urine Color Yellow Urine Appearance Clear Urine pH 5.0 (4.5-8.0) Ur Specific [place] 1.015 (1.000-1.035) Urine Protein Negative (Negative) Urine Glucose (UA) Negative (Normal) g/dL Urine Ketones Negative (NEGATIVE) Urine Occult Blood 2+ H (Negative) Urine Nitrate Negative (Negative) Urine Bilirubin Negative (NEGATIVE) Urine Urobilinogen 0.2 (0.2) E.U./dL Ur Leukocyte Esterase Negative (NEGATIVE) Urine RBC 1-5/hpf (0-5/HPF) Urine WBC 0-1/hpf (0-5/HPF) Urine Bacteria None seen (None) Ur Culture Indicated? Cult not indicated Micro UA Comment Not Reportable Urine Opiates Screen Negative (Negative) Ur Oxycodone Screen Positive H (Negative) Urine Methadone Screen Negative (Negative) Ur Barbiturates Screen Negative (Negative) U Tricyclic Antidepress Negative (Negative) Ur Phencyclidine Scrn Negative (Negative) Ur Amphetamines Screen Negative (Negative) U Methamphetamines Scrn Negative (Negative) Ur MDMA Scrn (Ecstasy) Negative (Negative) U Benzodiazepines Scrn Negative (Negative) Urine Cocaine Screen Negative (Negative) U Marijuana (THC) Screen Positive H (Negative) Ethyl Alcohol mg/dL Point of Care Testing Glucose POC [address] scan - head: Radiologist's impression: motion present throughout the examination, limiting areas of evaluation, However no gross acute intracranial process. Moderate atrophya nd chronic microvascular ischemic changes. Angio Head/neck: Radiologist's impression: [address] [address] [address] Scan Report Signed Patient: Lyubov Prater MR#: [id number] : 1940 Acct:[id number] Age/Sex: 78 / F Date of Service: 04/08/18 Loc: ED Accession Number: [id number] Procedure: CT angio head and neck Ordering Provider: Coby Espino D.O. PROCEDURE: CT ANGIO HEAD AND NECK INDICATIONS: altered mental status, difficulty with speech TECHNIQUE: Pre-contrast 4.5 mm thick sections acquired from the foramen magnum to the vertex. After the administration of intravenous contrast, 1 mm thick sections acquired from the aortic arch through the [place] of [place]. Post-contrast 4.5 mm thick sections then re- acquired from the foramen magnum to the vertex. 3-dimensional maximum-intensity- projection (MIP) and/or volume rendering reformats were acquired of the central intracranial vasculature and neck separately. COMPARISON: [facility], CT, CT HEAD/BRAIN WO CON, 04/08/2018, 20:10. FINDINGS: Image quality: Excellent. BRAIN: The ventricular system and cortical sulci demonstrate atrophy, consistent for the patient's stated age. There are areas of hypodensity within the periventricular and subcortical white matter. There is no acute intra-or extra axial fluid collection. No acute hemorrhage, mass lesion or midline shift. Brainstem is unremarkable. Globes are symmetrical. Sinuses are aerated. Osseous structures are intact. HEAD CT ANGIOGRAPHY: Anterior circulation: Intracranial internal carotid arteries are normal in size and flow. The flow within the paired anterior cerebral arteries is normal and symmetric. The flow within the middle cerebral arteries is normal and symmetric. The anterior communicating artery is seen. No aneurysms are seen. Posterior circulation: Visualized portions of the vertebral arteries demonstrate normal caliber, and join to form a normal appearing basilar artery. Flow within the posterior cerebral arteries is normal and symmetric. No aneurysms are seen. NECK CT ANGIOGRAPHY: The origins of the left and right common, internal and external carotid arteries demonstrate no areas of hemodynamically significant stenosis, vascular occlusion or aneurysmal dilation. Origins of the left and right vertebral arteries demonstrate no areas of hemodynamically significant stenosis, vascular occlusion or aneurysmal dilation. Aortic arch demonstrates conventional anatomy. Limited, visualized portions subclavian vasculature are unremarkable. IMPRESSION: 1. No acute intracranial process. 2. Moderate atrophy and chronic microvascular ischemic changes. 3. No areas of hemodynamically significant stenosis, vascular occlusion or aneurysmal dilation within the anterior or posterior circulation. 4. No areas of hemodynamically significant stenosis, vascular occlusion or aneurysmal dilation within the neck vasculature. Any quantitative measurements of stenosis were performed using NASCET criteria. Dictated by: Dori Abel M.D. on 04/08/2018 at 21:23 Approved by: Dori Abel M.D. on 04/08/2018 at 21:31 Chest x-ray: Radiologist's impression: [place] [address] XRay Report Signed Patient: Lyubov Prater MR#: [id number] : 1940 Acct:[id number] Age/Sex: 78 / F Date of Service: 04/08/18 Loc: ED Accession Number: [id number] Procedure: XR chest 1V Ordering Provider: Coby Espino D.O. PROCEDURE: XR CHEST 1V INDICATIONS: altered mental status TECHNIQUE: One view of the chest was acquired. COMPARISON: None. FINDINGS: Surgical changes and devices: Cervical fixation plates are partially visualized. Lungs and pleura: There is an overall appearance of increased pulmonary vascularity. Minimal streaky opacity is present in the retrocardiac region. Mediastinum: Mediastinal contours appear normal. Heart size is normal. Bones and chest wall: No suspicious bony lesions. Overlying soft tissues appear unremarkable. IMPRESSION: Increased vascularity suggestive of edema. Streaky retrocardiac opacity is present. This could represent focal edema or developing pneumonia/atelectasis. Dictated by: Dori Abel M.D. on 04/08/2018 at 21:01 Approved by: Dori Abel M.D. on 04/08/2018 at 21:02 ECG Data Attestation: I personally reviewed and interpreted this ECG as follows: Prior ECG tracings: not available for review Interpretation: Sinus rhythm with a rate of 98 P are 151 QRS of 79 QTC of 381. No ST elevation or depression. MDM Narrative Medical decision making narrative: Patient comes in with kind of gradual worsening of altered mental status for about an hour today. Patient by description does not sound clearly like a stroke although could be. She is not a tPA candidate secondary to her elevated INR at 3 because she is on Coumadin. CTA does not show any acute occlusion patient does have an elevated prolactin, she has had some tremor illicit this but no clear seizure-like activity, non witnessed by EMS and by description on from the family. Patient does show some lab abnormalities. She did seem to have a very mild response to Narcan. Discussed with hospitalist area piece got and they except for admission. Spoke with family both sides agree that patient had told the with the past that she wished to be DNR/DNI with aggressive interventions. They are comfortable with medical management. Discharge Plan Departure Patient Disposition: Admitted As Inpatient Clinical Impression: Altered mental status Discharge Date/Time: 04/09/18 00:14 Interventions: ED Discharge Assessment Last Done: 04/09/18 00:14 Admit Date/Time: 04/08/18 22:39 Admit Provider: Nj José
[2018-04-08 21:04] LABS: Urine Amphetamines Negative (Negative); Urine Barbiturates Negative (Negative); Urine Benzodiazepines Negative (Negative); Urine Cocaine Negative (Negative); Urine MDMA Negative (Negative); Urine Methadone Negative (Negative); Urine Methamphetamines Negative (Negative); Urine Morphine/Opi cutoff 2000 Negative (Negative); Urine Oxycodone Positive (Negative); Urine Phencyclidine Negative (Negative); Urine Tetrahydrocannabinol Positive (Negative); Urine Tricyclic Antidepressant Negative (Negative)
[2018-04-08 21:10] LABS: Prolactin 23.9 ng/mL (3.0-18.6)
[2018-04-08 21:12] LABS: Troponin I < 0.012 ng/mL (0.01-0.034)
[2018-04-08] MEDS: SODIUM CHLORIDE 0.9% 1,000 ML 150 ML IV (21:27)
--- NOTE | 2018-04-08 21:40 | PC.NURSE ---
Pts NS infusion increased from 150ml/hr to 500ml/hr per provider. Pt appears in no acute distress at this time.
[2018-04-08 21:41] LABS: B Type Natriuretic Peptide < 100 (<100)
[2018-04-08] MEDS: NALOXONE 0.4 MG/ML VIAL IV (21:51)
[2018-04-08 23:00] LABS: Thyroid Stimulating Hormone 2.61 uIU/mL (0.47-4.68)
--- NOTE | 2018-04-08 23:25 | PC.NURSE ---
Hospitalist at bedside assessing pt for admission
[2018-04-09] VITALS (7 sets, daily range): BP systolic 136–156; BP diastolic 63–89; PULSE 68–94; RESP 16–20; TEMP 36.3–36.6; O2SAT 95–100
--- NOTE | 2018-04-09 | DI.ECHO.S_ITS ---
[facility] +---------+ : : [address] : : : : [id number] : : : : Phone: [phone] Echocardiogram Report + + :Name: MARILYN SAUL Study Date: 04/10/2018 Height: 61 in : :[facility] Weight: 177 lb : : Gender: Female BSA: 1.8 m2 : :: 1940 Age: 78 yrs BP: 136/63 mmHg: :Reason For Study: Syncope : : Performed By: Gem Salazar : :Referring: UNSPECIFIED : + + Interpretation Summary The study quality is suboptimal. The left ventricle is normal in size, wall thickness, and systolic function without any focal wall motion abnormalities. The ejection fraction is estimated to be 60-65%. The right ventricle grossly appears normal in size with probable normal systolic function. Injection of contrast documented no interatrial shunt. The right ventricular systolic pressure is estimated to be at least 45 mmHg based on an estimated right atrial pressure of 3 mm Hg. There is no prior echocardiogram noted for this patient. Procedure: A two-dimensional transthoracic echocardiogram with color flow and Doppler was performed. The study quality was technically adequate. There is no prior echocardiogram noted for this patient. The patient was in normal sinus rhythm during the exam. Left Ventricle: The left ventricle is normal in size, wall thickness, and systolic function without any focal wall motion abnormalities. The ejection fraction is estimated to be 60-65%. Diastolic function could not be accurately assessed due to contradictory data. Right Ventricle: The right ventricle grossly appears normal in size with probable normal systolic function. Atria: The left atrial size is normal. Right atrial size is normal. Injection of contrast documented no interatrial shunt. Mitral Valve: The mitral valve is normal in structure and function. There is no mitral valve stenosis. There is trace mitral regurgitation. Aortic Valve: The aortic valve opens well. There is mild aortic valve sclerosis. The aortic valve is not well visualized. Probably trileaflet. There is no aortic valve stenosis. No aortic regurgitation is present. Tricuspid Valve: The tricuspid valve leaflets are thin and pliable. There is mild tricuspid regurgitation. The right ventricular systolic pressure is estimated to be at least 45 mmHg based on an estimated right atrial pressure of 3 mm Hg. Pulmonic Valve: The pulmonic valve is not well visualized. Great Vessels: The aortic root is normal size. The dimensions of the ascending aorta are normal. The aortic arch is normal in size. The IVC is of normal diameter and collapses greater than 50% with a sniff. This suggests a low right atrial pressure of 3 mm Hg. Pericardium/ Pleura There is no pericardial effusion. There is no pleural effusion. MMode/2D Measurements & Calculations LVIDd: 4.5 cm Ao root diam: 2.9 cm LVIDs: 2.7 cm Aortic Jxn: 2.5 cm FS: 39.0 % asc Aorta Diam: 2.8 cm EPSS: 0.56 cm Ao Arch Diam (Prox Trans): 2.5 cm IVSd: 0.75 cm LVPWd: 0.80 cm LV junior. diameter/BSA (cm/m^2): 2.5 LV sys. diameter/BSA (cm/m^2): 1.5 LA dimension: 3.5 cm RA long axis: 4.0 cm LA A2 area: 19.8 cm2 RA area: 12.9 cm2 LA A4 area: 17.3 cm2 RA vol: 35.2 ml LA length (vol): 4.3 cm RA : 19.6 ml/m2 LA vol: 67.4 ml IVC diam: 1.7 cm LA vol index: 37.6 ml/m2 RVDd major: 5.3 cm RVD1 (basal): 3.0 cm RVD2 (mid): 3.0 cm Doppler Measurements & Calculations Ao V2 max: 157.6 cm/sec MV E max alex: 105.8 cm/sec Ao V2 mean: 112.2 cm/sec MV A max alex: 74.1 cm/sec Ao max P.9 mmHg MV E/A: 1.4 Ao mean P.7 mmHg Med Peak E' Alex: 8.0 cm/sec Ao V2 VTI: 36.7 cm E/E' med: 13.2 Lat Peak E' Alex: 8.2 cm/sec E/E' lat: 12.9 E/e' average: 13.1 MV dec time: 0.22 sec MV P1/2t: 64.3 msec TR max alex: 324.1 cm/sec MV P1/2t max alex: 105.3 cm/sec TR max P.0 mmHg MVA(P1/2t): 3.4 cm2 PA V2 max: 79.5 cm/sec PA V2 mean: 54.1 cm/sec PA mean P.3 mmHg PA Accel Time: 0.21 sec Electronically signed by: Chema Raymundo M.D. on Reading Physician:04/10/2018 03:37 PM
--- NOTE | 2018-04-09 | DI.MRI.S_ITS ---
PROCEDURE: MR HEAD/BRAIN WO CON INDICATIONS: Acute altered mental status, history of prior CVA TECHNIQUE: Non-contrast axial T1 spin echo, axial T2 fast spin echo, sagittal and axial FLAIR, coronal T2 fast spin echo, axial gradient echo, axial diffusion and ADC through the brain. COMPARISON: [facility], CT, CT HEAD/BRAIN WO CON, 04/08/2018, 20:10. [facility], CT, CT ANGIO HEAD AND NECK, 04/08/2018, 20:56. FINDINGS: Image quality: Excellent. CSF spaces: Ventricles appear symmetric in size and shape. Basal cisterns are patent. No extra-axial fluid collections. Brain: No intracranial bleeds or mass effects. There is cerebral volume loss for age. There are periventricular and deep white matter chronic small vessel ischemic changes. Brainstem appears normal. Diffusion-weighted images show no acute ischemic insults. No chronic ischemic insults. Normal intravascular flow voids are present. Skull and face: Calvarial bone marrow is normal in signal. Orbits are normal. Sinuses: Sinuses and mastoids are clear. IMPRESSION: 1. No evidence of acute infarction. No intracranial bleed or midline shift. 2. Mild atrophy and mild periventricular white matter chronic ischemic microangiopathic changes. Dictated by: Andrés Ribeiro M.D. on 04/09/2018 at 10:27 Approved by: Andrés Ribeiro M.D. on 04/09/2018 at 10:28
--- NOTE | 2018-04-09 00:30 | PM.HP.1 ---
History of Present Illness Date Patient Seen: 04/08/18 Time Patient Seen: 23:20 Chief complaint: Unresponsive Narrative: This is an 78-year-old female patient who was brought into the ER by family with complaints of altered mental status. The patient is presently visiting from [facility] then had an abrupt onset of altered mental status approximately 5 hr ago. The patient was called to dinner by family she stood up from her chair and her son reports that she ?just there and had a grimace on her face?. The patient slumped back into the chair with no associated trauma or injury. The patient had no seizure activity or facial drooping. The family reports she had difficulty speaking and has a history of diabetes . The family checked blood sugar found her glucose level to be 70 mg/dL and gave her orange juice and a sandwich however the patient had a difficult time holding the glass and was tremulous. The patient did not improve following eating and continued to have worsening difficulty speaking appearing to be able to understand and follow commands but per the family felt she could not express herself. Patient has a history of a stroke 12 years ago for which she has been on warfarin and presently has an INR of 3.0 and no residual neurological deficits. The family also says that prior to give the patient had taken a CBD pill for chronic back pain. They report no other prodromal symptoms such as headache complaints of dizziness or chest pain and no shortness of breath. The family reports the patient made a statement that ?I am dying?. In the ER the patient had no apparent lateralizing symptoms of stroke but continued to be altered. EMS obtained a glucose level of 60 and she has been given additional dextrose. She also has been taking oxycodone for pain and was given Narcan both no change in sensorium. She was hypertensive and tachycardic given labetalol 10 mg as well as Ativan. Patient has additional history of recurrent UTIs and has a catheter placed with urine sent for culture. He states the patient's normal baseline is independent in all ADLs but has had prior back surgery with degenerative disc disease and has had more difficulty ambulating requiring the assistance of a cane. Patient History Medical History Hyperlipidemia (Acute) GERD (gastroesophageal reflux disease) (Acute) Chronic back pain (Acute) Current use of pen[facility]iary anticoagulation (Acute) Hypertension (Acute) Status post CVA (Acute) Insulin dependent diabetes mellitus (Acute) Surgical History Previous back surgery (Acute) Meds Home Medications Medication Instructions Recorded Confirmed Type brinzolamide [Azopt] 1 drp EYE-BOTH BID 04/08/18 04/08/18 History dorzolamide-timolol 1 drp EYE-BOTH BID 04/08/18 04/08/18 History insulin glargine [Lantus Solostar SUBCUT DAILY 04/08/18 History U-100 Insulin] insulin lispro [Humalog KwikPen 04/08/18 History Insulin] lisinopril 40 mg PO DAILY 04/08/18 04/08/18 History metformin 1 tab PO BID 04/08/18 04/08/18 History nystatin [Nyamyc] 1 dose TOPICAL BID 04/08/18 04/08/18 History omeprazole 20 mg PO DAILY 04/08/18 04/08/18 History sertraline 50 mg PO DAILY 04/08/18 04/08/18 History simvastatin 40 mg PO DAILY 04/08/18 04/08/18 History tramadol 1 - 2 tab PO QID PRN 04/08/18 04/08/18 History warfarin 6 mg PO DAILY 04/08/18 04/08/18 History Allergies Allergy/AdvReac Type Severity Reaction Status Date / Time metronidazole [From FLAGYL] Allergy Mild Verified 04/08/18 20:46 meperidine Allergy Unknown Verified 04/08/18 20:46 Review of Systems Review of Systems unobtainable due to mental status (Altered mental status, unable to verbalize, only follows simple commands) and other (Minimal information obtained from the patient's son Sammy Coyner and his . The patient only arrived day before yesterday for the holidays) Constitutional Constitutional: Reports system reviewed and no additional complaints, except as documented, Denies frequent falls and Denies headache(s) Eyes Eyes: Denies loss of vision, Denies other visual disturbances and Denies sensitivity to light ENT Ears, Nose, Mouth, and Throat: No difficulty swallowing, No headache(s), No hearing loss, No nasal congestion, No neck pain, Yes poor balance and Yes other (No dysphagia) Cardiovascular Cardiovascular: Denies chest pain, Denies fainting, Denies irregular heart rhythm, Denies leg swelling, Denies lightheadedness, Denies shortness of breath and Denies shortness of breath with activity Respiratory Respiratory: Denies chest congestion, Denies cough, Denies dyspnea, Denies dyspnea on exertion and Denies wheezing Gastrointestinal Gastrointestinal: Denies abdominal pain, Denies dysphagia, Denies heartburn (Current meds taking omeprazole), Denies nausea and Denies vomiting Genitourinary Genitourinary: Denies urinary frequency, Denies urinary urgency and Reports other (Prior history recurrent UTIs) Musculoskeletal Musculoskeletal: Reports abnormal gait (Related to back pain, ambulates with cane), Denies neck pain, Denies numbness and Denies tingling Integumentary/Breasts Skin/Breast: Denies dry skin, Denies lesions and Denies rash Neurologic Neurologic: Denies abnormal movements, Reports abnormal gait (Related to back pain, ambulates with cane), Denies behavioral changes (Currently taking sertraline), Denies syncope, Denies frequent falls, Denies headache(s), Denies loss of vision, Denies numbness, Denies seizure-like activity, Denies tingling and Reports disequilibrium Psychiatric Psychiatric: Denies behavioral changes (Currently taking sertraline), Denies change in appetite, Denies irritability, Denies panic attacks and Denies hallucinations Endocrine Endocrine: Reports other (Diabetes without report of hyper or hypo glycemic events until today) Hematologic/Lymphatic Hematologic/Lymphatic: Denies easy bleeding, Denies easy bruising and Denies lymphadenopathy Allergic/Immunologic Allergic/Immunologic: Denies wheezing Exam Vital Signs (past 8 hours): - 04/08/18 20:17 04/08/18 20:18 04/08/18 20:20 Temperature 98.1 F Pulse Rate 120 H 117 H 119 H Respiratory Rate 20 20 21 Blood Pressure 219/120 H Blood Pressure [Left Arm] 219/120 H 214/180 H Pulse Oximetry 100 100 97 04/08/18 20:22 04/08/18 20:26 04/08/18 20:30 Temperature Pulse Rate 117 H 100 H 94 H Respiratory Rate 20 22 18 Blood Pressure 219/120 H 220/115 H Blood Pressure [Left Arm] 214/180 H 227/211 H Pulse Oximetry 100 100 94 04/08/18 20:40 04/08/18 20:50 04/08/18 21:00 Temperature Pulse Rate 91 H 89 86 Respiratory Rate 18 17 Blood Pressure Blood Pressure [Left Arm] 130/73 100/60 Pulse Oximetry 93 93 04/08/18 21:09 04/08/18 21:27 04/08/18 22:32 Temperature Pulse Rate 90 86 82 Respiratory Rate 14 22 20 Blood Pressure Blood Pressure [Left Arm] 114/61 105/75 121/47 L Pulse Oximetry 91 100 100 04/08/18 23:12 04/08/18 23:14 04/08/18 23:19 Temperature Pulse Rate 81 80 Respiratory Rate 20 14 Blood Pressure Blood Pressure [Left Arm] 111/49 L 111/49 L Pulse Oximetry 79 L 100 100 04/08/18 23:45 Temperature Pulse Rate 75 Respiratory Rate 16 Blood Pressure Blood Pressure [Left Arm] 120/53 L Pulse Oximetry 100 Oxygen Delivery Method Nasal Cannula Oxygen Flow Rate 4 Const General: well developed, well groomed and lethargic (Response to verbal stimulus) Nutritional Appearance: well nourished Orientation: other (GCS of 8) Limitations: altered mental status (No eye opening, nonverbal, follows simple commands), physical limitations (Weakness) and other limitations (Patient has received Ativan) [facility] Head: normocephalic (Symmetrical facies), atraumatic, No contusion, No hematoma and No laceration Ears: external ears normal and mastoids normal Nose: external nose normal and No epistaxis (No nasal drainage) Mouth: oral mucosae normal, tongue normal and moist mucous membranes Throat: uvula midline Eyes Alignment and Position: alignment abnormal (Slight esotropia) Eyelids: eyelids normal (No ptosis) Conjunctivae: conjunctivae normal Sclera: sclerae normal (Anicteric) Pupils: PERRL (Mid point and reactive) Direct ophthalmoscopy: other (Unable to assess EOMs will not track light, forward gaze) Neck Neck: normal visual inspection, no meningeal signs and trachea midline Thyroid: thyroid normal and no masses Carotids: no bruits Lymphatic: No lymphadenopathy Chest Chest: normal inspection of the chest and normal palpation of entire chest wall (No grimace to palpation) Resp Effort & Inspection: no cough, decreased respiratory effort, not labored, no respiratory distress and symmetric chest movement Auscultation: clear to auscultation bilaterally, no rales, no rhonchi and no wheezes Cardio Heart Sounds: S1 normal, S2 normal and murmur systolic I/ and at the right sternal border Bruits: no carotid bruits Pulses: radial pulses present and dorsalis pedis present GI Palpation: soft, no hepatosplenomegaly, No guarding and No ascites Percussion: dullness to percussion Auscultation: normal bowel sounds General: other (Indwelling Velasquez catheter draining pale yellow clear urine) Back/Spine/Pelvis Back: normal to inspection and No CVA tenderness Skin Other: Skin is warm dry pink with no visible rashes or lesions Neuro General: obtunded (Response to verbal stimulus, nonverbal with no spontaneous eye opening, will follow simple commands) and unable to assess gait Cranial Nerves: tongue midline Cognition: abnormal cognition (As above) Speech: other (Nonverbal) Motor: no pronator drift and movement abnormality noted (Weakness of extremities 1/5 strength bilateral upper right greater than left, spontaneous movement of feet) Plantar Reflexes: Downgoing: bilateral (Brisk) and Withdrawal: bilateral (Minimal) Pupils: Mid position: bilateral and Sluggish: bilateral Objective Labs Result Diagrams: 04/08/18 20:30 04/08/18 20:30 Labs: Laboratory Results - last 24 hr 04/08/18 04/08/18 04/08/18 20:30 20:30 20:30 WBC 6.4 RBC 4.56 Hgb 13.5 Hct 41.0 MCV 89.9 MCH 29.6 MCHC 32.9 RDW 14.0 Plt Count 275 Neut % (Auto) 54.6 Lymph % (Auto) 30.0 [place] % (Auto) 10.9 Eos % (Auto) 3.6 Baso % (Auto) 0.9 Neut # (Auto) 3500 PT 34.8 H INR 3.0 H APTT 54 H ABG pH ABG pCO2 ABG pO2 ABG HCO3 ABG Total CO2 ABG O2 Saturation ABG Base Excess FiO2 Sodium 143 Potassium 4.8 Chloride 103 Carbon Dioxide 28 BUN 24 H Creatinine 0.70 Estimated GFR > 60.0 BUN/Creatinine Ratio 34.3 H Glucose 160 H Lactate Calcium 9.5 Total Bilirubin 0.6 AST 31 ALT 28 Alkaline Phosphatase 86 Troponin I < 0.012 B-Natriuretic Peptide Total Protein 8.0 Albumin 4.7 Globulin 3.3 Albumin/Globulin Ratio 1.4 TSH Prolactin 23.9 H Urine Opiates Screen Ur Oxycodone Screen Urine Methadone Screen Ur Barbiturates Screen U Tricyclic Antidepress Ur Phencyclidine Scrn Ur Amphetamines Screen U Methamphetamines Scrn Ur MDMA Scrn (Ecstasy) U Benzodiazepines Scrn Urine Cocaine Screen U Marijuana (THC) Screen Ethyl Alcohol < 10 04/08/18 04/08/18 04/08/18 20:30 20:30 20:35 WBC RBC Hgb Hct MCV MCH MCHC RDW Plt Count Neut % (Auto) Lymph % (Auto) Independence % (Auto) Eos % (Auto) Baso % (Auto) Neut # (Auto) PT INR APTT ABG pH 7.32 L ABG pCO2 47.7 H ABG pO2 65 L ABG HCO3 25 ABG Total CO2 26 ABG O2 Saturation 91 L ABG Base Excess -1.0 FiO2 21 Sodium Potassium Chloride Carbon Dioxide BUN Creatinine Estimated GFR BUN/Creatinine Ratio Glucose Lactate 1.3 Calcium Total Bilirubin AST ALT Alkaline Phosphatase Troponin I B-Natriuretic Peptide Total Protein Albumin Globulin Albumin/Globulin Ratio TSH 2.61 Prolactin Urine Opiates Screen Ur Oxycodone Screen Urine Methadone Screen Ur Barbiturates Screen U Tricyclic Antidepress Ur Phencyclidine Scrn Ur Amphetamines Screen U Methamphetamines Scrn Ur MDMA Scrn (Ecstasy) U Benzodiazepines Scrn Urine Cocaine Screen U Marijuana (THC) Screen Ethyl Alcohol 04/08/18 04/08/18 20:35 20:42 WBC RBC Hgb Hct MCV MCH MCHC RDW Plt Count Neut % (Auto) Lymph % (Auto) Independence % (Auto) Eos % (Auto) Baso % (Auto) Neut # (Auto) PT INR APTT ABG pH ABG pCO2 ABG pO2 ABG HCO3 ABG Total CO2 ABG O2 Saturation ABG Base Excess FiO2 Sodium Potassium Chloride Carbon Dioxide BUN Creatinine Estimated GFR BUN/Creatinine Ratio Glucose Lactate Calcium Total Bilirubin AST ALT Alkaline Phosphatase Troponin I B-Natriuretic Peptide < 100 Total Protein Albumin Globulin Albumin/Globulin Ratio TSH Prolactin Urine Opiates Screen Negative Ur Oxycodone Screen Positive H Urine Methadone Screen Negative Ur Barbiturates Screen Negative U Tricyclic Antidepress Negative Ur Phencyclidine Scrn Negative Ur Amphetamines Screen Negative U Methamphetamines Scrn Negative Ur MDMA Scrn (Ecstasy) Negative U Benzodiazepines Scrn Negative Urine Cocaine Screen Negative U Marijuana (THC) Screen Positive H Ethyl Alcohol Assessment & Plan Plan: Assessment/Plan Narrative: 1. Altered mental status History of prior stroke 12 years ago for which the patient is on warfarin and simvastatin. Exam is limited due to the administration of Ativan. Abrupt onset of symptoms approximately 5 hr previous, associated with speech impediment and expressive aphasia but able to follow commands. Progressive deterioration with the family calls a glazed expression. Patient is responsive to verbal stimulus and will squeeze hands on command right greater than left No other lateralizing findings no ptosis or facial droop, tongue is midline as is uvula, unable to further assess neurological function CTA is completed and essentially unremarkable. We will keep the patient NPO and obtain a MRI. We have ordered OT PT and will add speech evaluation as the patient becomes more responsive. 2. Hypertension The patient was given labetalol 10 mg the emergency department for tachycardia and hypertension. Patient with stable vitals at the time exam with pressure of 104/74 Considering this may be a neurological event this time will help allow permissive hypertension up to 180 mm Hg Enalaprilat 0.625 mg IV q6 hours as needed blood pressure greater than 180. 3. Diabetes type 2 The patient is on Lantus and lispro as home medications. Patient remains altered despite normalization of blood sugar following a hypoglycemic event This time will continue IV fluid hydration with normal saline at 125 mL/hour Accu-Cheks are ordered q.6 hours and Insulin sliding scale is ordered per medium dose protocol Will also check hemoglobin A1c to ascertain level of glycemic control 4. Long-term use of anticoagulation The patient has been on warfarin, 6 mg p.o. daily with an INR 3.0. Head CT is negative for bleed, no other abnormal bleeding or bruising is identified Will start Lovenox for DVT prophylaxis tomorrow. 5. Chronic back pain Patient with history of degenerative disc disease with him reporting plan for surgical intervention. At baseline patient with altered gait using a cane to ambulate The patient is used oxycodone and CBD pills for pain management. We will follow the patient and assess the need for pain management and intervention 6. Advanced directives Surrogate decision maker is the patient's son Sammy Fernandez, phone number [phone] Per discussion at this time the patient is full code, he has to CPR yes to intubation temporarily. The patient's son states the patient would not want long-term life support treatment. Scores GCS Trinidad coma scale eye opening: None Trinidad coma scale verbal response: None Rajeev coma scale motor response: Obey commands Rajeev coma scale total score: 8
[2018-04-09] MEDS: SODIUM CHLORIDE 0.9% 1,000 ML 125 ML IV ×3 (01:03→17:59)
[2018-04-09 02:11] LABS: Bacteria Urine None Seen
[2018-04-09 02:12] LABS: Appearance Urine UA CLEAR; Bilirubin Urine UA NEGATIVE (NEGATIVE); Color Urine UA YELLOW; Glucose Urine UA NEGATIVE (Normal); Ketones Urine UA NEGATIVE (NEGATIVE); Leukocyte Esterase Urine UA NEGATIVE (NEGATIVE); Nitrite Urine UA NEGATIVE (Negative); Occult Blood Urine UA 2+ (Negative); Protein Urine UA NEGATIVE (Negative); Specific Gravity Urine UA 1.015 (1.000-1.035); Urobilinogen Urine UA 0.2 E.U./dL (0.2)
[2018-04-09 02:21] LABS: Culture Indicated Urine Cult Not Indicated; RBC Urine 1-5/HPF (0-5/HPF); WBC Urine 0-1/HPF (0-5/HPF)
--- NOTE | 2018-04-09 05:35 | PC.NURSE ---
Pt arrived on unit from ED at approx 0100. VSS, O2 sat = 98-99% on 2L. Pt initially responding only to movement slightly to voice, unable to answer admit questions. By 0500 Patient is A and O x 4 but does not remember what happened, knows she is Dora, knows she missed the [employer] libertarian, answered all other questions correctly and passed swallow eval. Serial blood sugars obtained: 102, 96, 88 and given juice when diet changed from NPO to dysphagia. Pt denies pain, nausea and is able to sleep. Pt is from [place], visiting her son, in the company of her other son. Scheduled MRI of brain and US of carotids today.
[2018-04-09 06:21] LABS: Add Manual Diff / Slide Review NO; Basophils Percent Auto 0.6 % (0-2); Eosinophils Percent Auto 1.2 % (2-4); Hematocrit 35.5 % (36-46); Hemoglobin 11.5 g/dL (12.0-16.0); Lymphocytes Percent Auto 24.7 % (25-40); Mean Corpuscular HGB Conc 32.4 % (30-36); Mean Corpuscular Hemoglobin 29.4 PG (26-34); Mean Corpuscular Volume 90.6 fL (80-100); Monocytes Percent Auto 10.7 % (3-14); Neutrophils Absolute Auto 3400 /uL (1500-7000); Neutrophils Percent Auto 62.8 % (50-75); Platelet Count 187 X10^3/uL (150-400); Red Blood Cell Count 3.92 X10^6/uL (4.0-5.2); Red Cell Distribution Width 13.9 % (11.6-14.8); White Blood Cell Count 5.4 X10^3/uL (4.5-11.0)
[2018-04-09 06:37] LABS: Hemoglobin A1C% w Est Avg Glu 6.6 % (4.0-6.0)
[2018-04-09 06:41] LABS: Blood Urea Nitrogen 19 mg/dL (7-17); Calcium 8.5 mg/dL (8.4-10.2); Carbon Dioxide 20 mmol/L (22-32); Chloride 109 mmol/L (98-107); Estimated Glomerular Filt Rate > 60.0 mL/min (>60); Glucose 123 mg/dL (80-110); Sodium 141 mmol/L (137-145)
[2018-04-09 06:42] LABS: HEMOLYSIS 60 (0-50); Potassium 4.7 mmol/L (3.4-5.1)
[2018-04-09] MEDS: LISINOPRIL 20 MG TABLET 40 MG PO (08:52)
[2018-04-09] MEDS: PANTOPRAZOLE 20 MG TABLET PO (08:52)
[2018-04-09] MEDS: METFORMIN XR 500 MG TABLET PO (08:52)
[2018-04-09] MEDS: SERTRALINE 50 MG TABLET PO (08:52)
[2018-04-09] MEDS: DORZOLAMIDE/TIMOLOL OPHTH 10 ML 1 DROPS EYE-BOTH (08:54)
[2018-04-09] MEDS: BRINZOLAMIDE OPHTH 10 ML 1 DROPS EYE-BOTH ×2 (08:54→21:00)
--- NOTE | 2018-04-09 11:11 | PT.IIE ---
Surgical History (Last Updated 04/09/18 @ 00:48 by JUSTUS Allen) Previous back surgery (Acute) Medical History (Last Updated 04/09/18 @ 00:47 by JUSTUS Allen) Hyperlipidemia (Acute) GERD (gastroesophageal reflux disease) (Acute) Chronic back pain (Acute) Current use of exterminator anticoagulation (Acute) Hypertension (Acute) Status post CVA (Acute) Insulin dependent diabetes mellitus (Acute) Physical Therapy Inpatient Evaluation/Re-Eval M1 PT/OT-IP Prior Functional Status Start: 04/09/18 10:48 Freq: NEEDED Status: Active Protocol: Document 04/09/18 10:50 [facility] (Rec: 04/09/18 11:10 [facility] [id number]) Medical Review Prior Functional Status Medical History Reviewed Yes Diet/Fluid Consistency Dysphagia Advanced Communication WNL Mobility and Gait Amb without AD around house and cane for longer bouts Activities of Daily Living and IADL's Indep with ADLs and cooking and cleanining Social History Household Members none Living Arrangements House Number of Floors (Floors) One Floor Number of Stairs To Enter/Railing? no steps to enter Home Environment Standard Height Toilet Tub/Shower Home Equipment Straight Cane Grab Bars Near Toilet Grab Bars In Shower Employment Status Retired Additional Social History Comment Pt lives in [place], but is in [place] visiting her son. She planned to fly to [place] to visit her dgt on . Her son's house does not have a bedroom for her to stay in the house, so she stays in a small house on the property that has several steps to get in with a tub without bars and normal height toilets without bars. M2 PT-IP Current Condition Start: 04/09/18 10:48 Freq: NEEDED Status: Active Protocol: Document 04/09/18 10:50 [facility] (Rec: 04/09/18 11:10 [facility] [id number]) Physical Therapy Current Condition Current Condition Evaluation Date 04/09/18 Treatment Diagnosis unresponsive, weakness Weight Bearing Status Weight Bearing Status Full Weight Bearing M3 PT-IP Subjective Start: 04/09/18 10:48 Freq: NEEDED Status: Active Protocol: Document 04/09/18 10:50 [facility] (Rec: 04/09/18 11:10 [facility] [id number]) Subjective Physical Therapy Visit Type Type Initial Evaluation Visit Start Time 10:15 Visit Stop Time 10:50 Total Visit Minutes 35 Physical Therapy Visit Comments Patient Comments pt is agreeable to get up M4 PT-IP Mobility and Gait Start: 04/09/18 10:48 Freq: NEEDED Status: Active Protocol: Document 04/09/18 10:50 [facility] (Rec: 04/09/18 11:10 [facility] [id number]) PT-Bed Mobility Assessment Supine to Sit Supine to Sit Standby Assistance Bedrails Scooting Scooting to Edge of Bed Standby Assistance PT-Transfer Assessment Sit to and From Stand Sit to and from Stand Contact Guard Assistance Equipment Transfer Assistive Device Gait Belt Front Wheeled Walker Orthotic/Prosthetic Devices or Brace: No Transfers Transfer Destination Chair Comments Mobility Comments Pt amb then sat in chair Gait Assessment Gait Gait Assistance Required: Contact Guard Assist Distance (Feet) 60 Assistive Devices Assistive Device Gait Belt Front Wheeled Walker Gait Deviations General Gait Pattern Decreased Stride Length Decreased Feet Clearance Flexed Trunk Factors Limiting Gait Function Factors Limiting Gait Function Decreased Strength Pain Poor Balance Comments Gait Comments Pt recognized before PT cued her that she was having difficulty staying inside walker but required cuieng during turning to try to stay inside FWW. Pt had overall dec stride length and dec balance , requiring CGA. PT-Balance Assessment Sitting Balance and Reactions Static Sitting Balance Ability Good Dynamic Sitting Balance Ability Good Standing Balance and Reactions Static Standing Balance Ability Fair Dynamic Standing Balance Ability Poor M5 PT-IP Objective Assessments Start: 04/09/18 10:48 Freq: NEEDED Status: Active Protocol: Document 04/09/18 10:50 [facility] (Rec: 04/09/18 11:10 [facility] [id number]) Orientation Orientation/Cognition Level of Alertness Alert Gross Range of Motion Lower Extremity ROM Assessment Right Impaired Impairments RLE strength grossly 3-3+/5 at knee & hip; 5/5 for seated PF /DF testing M6 PT-IP Treatment Start: 04/09/18 10:48 Freq: NEEDED Status: Active Protocol: Document 04/09/18 10:50 [facility] (Rec: 04/09/18 11:10 [facility] [id number]) Physical Therapy Treatment Education Education Provided Safety M7 PT-IP Assessment and Plan Start: 04/09/18 10:48 Freq: NEEDED Status: Active Protocol: Document 04/09/18 10:50 [facility] (Rec: 04/09/18 11:10 [facility] [id number]) PT Summary Assessment and Plan Potential Rehabilitation Potential Good Status of Condition at Evaluation Evolving Summary Impairments Pain Strength Balance Transfers Gait Activity Tolerance Assessment Summary Pt presents with overall weakness & dec balance after unresponsive episode at home. Pt is being tested to determine cause of weakness and episode. She would not be safe at this time to fly alone and would require assistance for safety to get on/off a plane. Pt may require assistance at d/c and will have to discuss with family re : planning as pt typically lives alone. Goals Bed Mobility Goal Independent Transfer Goal Independent Gait Goal Independent Cane Gait Distance 150 Other Goals up/down stairs with rail with min A Days to Meet Goals 4 Frequency of Treatment Frequency Of Treatment Once a Day Treatment Plan Physical Therapy Treatment Plan Bed Mobility Training Transfer Training Gait Training Therapeutic Exercise Balance Retraining Discharge Planning Neuromuscular Re-ed Discharge Recommendations PT Discharge Recommendations Home with Assistance Home Health SNF Rehab Other Discharge Recommendations questionable d/c planning at this time. Pt is likely to require assistance when d/c.
--- NOTE | 2018-04-09 11:32 | CM.DANOTE ---
Discharge Planning/Care Management DCP: assessment: case received, EMR reviewed. Discussed case in Team Rounds. Dr. Ashby agreed with need for RETAIL DEPARTMENT MANAGER eval, order is in for same. RETAIL DEPARTMENT MANAGER will not be here until tomorrow due to holiday schedule. Met now with pt, in process of working with OT Mabel. Introduced self and role. Pt is an 78 year old female who admitted last night to care of the hospitalist team. PCP is in [place]. Payer: [facility]. Admission status: Confirmed now by UR KATERIN York as need to change from an INPT to OBS order as the MRI was - for CVA. Pt confirms she flew here from [place] by herself and has been staying for a couple days with her son Sammy Prater. She is due to take the train to [facility] on to visit her daughter. Both PT and OT note that pt's balance seems a bit off and not at her reported baseline. She has also been placed on a dysphagia diet. Says prior to this admission she has had no dietary restrictions. The RETAIL DEPARTMENT MANAGER eval is pending. P: follow as POC unfolds to assist with d/c issues and options. Full dx appears at this point to be in process. CM Discharge Assessment Start: 04/09/18 11:29 Freq: Status: Active Protocol: Document 04/09/18 11:29 ITV (Rec: 04/09/18 11:32 IT[facility] [id number]) Discharge Planning Assessment History Provided By Patient Medical Record Has Patient been admitted in last 30 No days? Prior Living Arrangements House Comment lives independently in her home in [place], here visiting family for holidays Household Members none Independent with ADL's Yes Is patient alert and oriented? Yes: OT doing cognitive testing DME Already Rented / Owned Cane Comment funtionally independent in her home, uses cane when out of home, prn. Whiteboard Updated in Patient Room with Yes name and ext. # of Research Staff Member Review Status In Process Next Review Type Continued Stay Review
--- NOTE | 2018-04-09 13:31 | OT.IP.EVAL ---
Past Medical History (Last Updated 04/09/18 @ 00:47 by JUSTUS Allen) Hyperlipidemia (Acute) GERD (gastroesophageal reflux disease) (Acute) Chronic back pain (Acute) Current use of intermediate anticoagulation (Acute) Hypertension (Acute) Status post CVA (Acute) Insulin dependent diabetes mellitus (Acute) Surgical History (Last Updated 04/09/18 @ 00:48 by JUSTUS Allen) Previous back surgery (Acute) Occupational Therapy Inpatient Evaluation/Re-Eval M1 PT/OT-IP Prior Functional Status Start: 04/09/18 10:48 Freq: NEEDED Status: Active Protocol: Document 04/09/18 10:50 [facility] (Rec: 04/09/18 11:10 [facility] [id number]) Medical Review Prior Functional Status Medical History Reviewed Yes Diet/Fluid Consistency Dysphagia Advanced Communication WNL Mobility and Gait Amb without AD around house and cane for longer bouts Activities of Daily Living and IADL's Indep with ADLs and cooking and cleaning Social History Household Members none Living Arrangements House Number of Floors (Floors) One Floor Number of Stairs To Enter/Railing? no steps to enter Home Environment Standard Height Toilet Tub/Shower Home Equipment Straight Cane Grab Bars Near Toilet Grab Bars In Shower Employment Status Retired Additional Social History Comment Pt lives in [place], but is in [place] visiting her son. She planned to fly to [place] to visit her dgt on . Her son's house does not have a bedroom for her to stay in the house, so she stays in a small house on the property that has several steps to get in with a tub without bars and normal height toilets without bars. M1 PT/OT-IP Prior Functional Status Start: 04/09/18 13:07 Freq: NEEDED Status: Active Protocol: Document 04/09/18 13:07 [facility] (Rec: 04/09/18 13:31 [facility] [id number]) Medical Review Prior Functional Status Medical History Reviewed Yes Diet/Fluid Consistency Dysphagia Advanced Communication WNL Mobility and Gait Amb without AD around house and cane for longer bouts Activities of Daily Living and IADL's Indep with ADLs and cooking and cleaning, drives only during the day. Prior Functional Level (Other details) Pt states had had one fall in the past 6 months and usually from right foot dragging or tripping over cement curb and also states has difficulty with depth perception. Social History Household Members none Living Arrangements House Number of Floors (Floors) One Floor Number of Stairs To Enter/Railing? no steps to enter Home Environment Standard Height Toilet Tub/Shower Home Equipment Straight Cane Grab Bars Near Toilet Grab Bars In Shower Employment Status Retired Additional Social History Comment Pt lives in [place], but is in [place] visiting her son. She planned to fly to [place] to visit her dgt on . Her son's house does not have a bedroom for her to stay in the house, so she stays in a small house on the property that has several steps to get in with a tub without bars and normal height toilets without bars. M2 OT-IP Current Condition Start: 04/09/18 13:07 Freq: Status: Active Protocol: Document 04/09/18 13:07 [facility] (Rec: 04/09/18 13:31 [facility] [id number]) Occupational Therapy Current Condition Current Condition Evaluation Date 04/09/18 Treatment Diagnosis Altered mental status Diagnosis Onset Date 04/08/18 Weight Bearing Status Weight Bearing Status Full Weight Bearing M3 OT- IP Subjective and Pain Start: 04/09/18 13:07 Freq: Status: Active Protocol: Document 04/09/18 13:07 [facility] (Rec: 04/09/18 13:31 [facility] [id number]) OT- Subjective Occupational Therapy Visit Type Type Initial Evaluation Visit Start Time 11:00 Visit Stop Time 12:00 Total Visit Minutes 60 Occupational Therapy Visit Comments Patient Comments Pt agreeable to do OT eval, pt feels that she is having a hard time thinking. Patient/Caregiver Goals To be able to take the train to see her daughter in [place], [place]. 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 OT ADL-Oral Care General Eval Oral Care Ability Independent OT ADL-Dressing General Eval Lower Body Dressing Ability Minimal Assistance Comments OT Dressing Comments Pt not able to vahe right sock , pt states at home having increased difficulty to do so lately. OT ADL-Toileting Comments OT Toileting Comments Pt has catheter in. M5 OT- IP IADL's Start: 04/09/18 13:07 Freq: Status: Active Protocol: Document 04/09/18 13:07 [facility] (Rec: 04/09/18 13:31 [facility] [id number]) OT-Instrumental Activities of Daily Living Home Safety Awareness Ability to Problem Solve Emergency Able to Problem Solve Situations Medication Management Medication Management Comments Pt states does her own. Money Management Money Management Comments Pt states down her own, and pays bills through the bank. Meal Preparation Meal Preparation Comments Pt states doesn her own. City Treasurer City Treasurer Comments Pt does her own. Driving Driving Comments Pt states just drives during the day. M6 OT- IP Functional Cognition Start: 04/09/18 13:07 Freq: Status: Active Protocol: Document 04/09/18 13:07 [facility] (Rec: 04/09/18 13:31 [facility] [id number]) Cognitive Factors Limiting Selfcare Function Cognitive Ability Level of Alertness Alert Patient Orientation Name Age Birthday Month Year Day of Week Place Situation Attention Span Ability Capable of Focused Attention Capable of Sustained Attention Ability to Follow Commands Able to Follow Multi-Step Commands Memory Description Immediate Intact Short Term Impaired Electric Repair Supervisor Intact Safety Awareness Underestimates Need for Assistance Problem Solving Ability Unable to Identify Errors Needs Assist to Identify Solutions Executive Function Ability Unable to Organize Plans Unable to Remember Details Cognitive Tests SLUMS Pt scored 23/30 normal is 27. Pt having most difficulty with STM, an drawing the numbers on the clock. ACL Pt scored 4.4 out of 6.0 which implies lives with someone who does a daily check on the environment and removes any safety hazzards and solves new problems that may occur. Pt did not have her glasses, but states able to see the assessment and having difficulty to complete versus due to vision deficits. Cognitive Comments Cognitive Assessment Comments Pt able to follow 2-3 step commands. OT- Vision and Hearing OT- Hearing Assessment OT- Hearing Assessment Use of Hearing Aids OT- Vision Assessment Visual Acuity Glasses All The Time Visual Attentiveness WFL Occular Pursuits WFL Visual Wise WFL Vision Assessment Comments Pt states glasses at her son's home. M7 OT- IP Mobility and Balance Start: 04/09/18 13:07 Freq: Status: Active Protocol: Document 04/09/18 13:07 [facility] (Rec: 04/09/18 13:31 [facility] [id number]) OT-Transfer Assessment Sit to and From Stand Sit to and from Stand Contact Guard Assistance 1 Person Assistance Transfers Transfer Ability Contact Guard Assistance 1 Person Assistance Technique Transfer Destination Chair Transfer Technique Stand Step Pivot Devices Transfer Assistive Devices Gait Belt Front Wheeled Walker Comments Mobility Comments Pt needing vc to keep FWW close to her, pt thens to push harder with LUE due to slight weakness to RUE. OT- Balance Assessment Sitting Balance and Reactions Static Sitting Balance Ability Normal Dynamic Sitting Balance Ability Normal Standing Balance and Reactions Static Standing Balance Ability Fair Dynamic Standing Balance Ability Poor M8 OT- IP Objective Assessments Start: 04/09/18 13:07 Freq: Status: Active Protocol: Document 04/09/18 13:07 [facility] (Rec: 04/09/18 13:31 [facility] [id number]) OT Gross Range of Motion Upper Extremity Range of Motion Assessment Within Functional Limits OT Strength Comments Strength Comments RUE 4/5, Lue 4/5 left stick feeder stronger than right. OT- Coordination Assessment Upper Extremity Finger to Nose Test Bilateral UE Impaired Comments Coordination Comments When completed second time, able to direct finger to nose WFL. Decreased FMS for opening items for grooming needs. OT-Muscle Tone Assessment Muscle Tone WNL Yes OT Sensation Assessment Comments Summary Comments Intact for light touch, proprioception and kinesthesia . M9 OT- IP Assessment and Plan Start: 04/09/18 13:07 Freq: Status: Active Protocol: Document 04/09/18 13:07 [facility] (Rec: 04/09/18 13:31 [facility] [id number]) OT Summary Assessment and Plan Potential Rehabilitation Potential Good Analytic Complexity at Evaluation Low Summary OT Impairments Balance Coordination Functional Cognition Functional Mobility Grooming Dressing Toileting Bathing Toilet Transfers Shower Transfers Progress Towards Goals Progressing Toward Goals Slow Progress due to Activity Tolerance Slow Progress due to Cognition Assessment Summary Pt Low complexity and main barrier are activity tolerance , as O2 level then to drop to 82% however able to quickly increase to 97% after taking deep breaths. In addition, O2 monitor attached to her ear and hard to get a good reading . Pt having trouble with short term memory, dynamic balance and now needing use of FWW. Goals Grooming Goal Independent Dressing Goal Standby Assistance Toileting Goal Standby Assistance Bathing Goal Contact Guard Assistance Toilet Transfer Goal Standby Assistance Shower Transfer Goal Standby Assistance Patient/Caregiver Education Goal Caregiver Independent Assisting Patient Days to Meet Goals 5 Frequency of Treatment Frequency Of Treatment Once a Day Treatment Plan OT Treatment Plan ADL Training Functional Cognition Training Functional Mobility Patient/Family Education Discharge Planning Discharge Recommendations OT Discharge Recommendations Home with 24/7 Assist SNF Rehab Other Discharge Recommendations Pending pt's disposition intially if family able to care for her home with 24/7 assist otherwise may need short skilled rehab to be able to get to prior level of independence, as was living alone Home Equipment Needs Shower chair/tub bench,[facility]
[2018-04-09] MEDS: WARFARIN 3 MG TABLET 6 MG PO (17:24)
--- NOTE | 2018-04-09 23:33 | PC.NURSE ---
1500- assumed care of pt from outgoing shift at 1500 this day. Pt awake and laying in bed. pt complains that she is very cold. given warm blankets. discussed plan of care with pt and pt cooperative. Pt completed NIH with me and did well. Pt ambulated steady gait with one person assist to BR. Pt has voided since garrett removal. Pt fluids d/c later in the shift. Pt tolerating oral intake well. no sign/s of aspiration. discussed orders extensively with providers. Pt med rec updated. will continue to monitor. 190- pt has family at bedside. Pt uses call light. belongings and call light within reach. bed alarm on. side rails upx3. will continue to monitor.
[2018-04-10] VITALS (7 sets, daily range): BP systolic 137–195; BP diastolic 72–105; PULSE 81–93; RESP 17–20; TEMP 36.4–36.7; O2SAT 94–100
--- NOTE | 2018-04-10 | DI.US.S_ITS ---
PROCEDURE: US CAROTID DOPPLER BI INDICATIONS: Altered mental status, prior CVA TECHNIQUE: Color and pulse Doppler interrogation was performed of both carotid systems, with image documentation and velocity measurements. COMPARISON: None. FINDINGS: Stenosis calculations are based on SRU (Society of Radiologists in Ultrasound) criteria. Right side: Brachial blood pressure: 138\93 mm Hg. Common carotid artery peak systolic velocity: 63 cm/sec. Internal carotid artery peak systolic velocity: 65 cm/sec. Internal carotid artery end diastolic velocity: 16 cm/sec. External carotid artery peak systolic velocity: 86 cm/sec. ICA/CCA peak systolic ratio: 1.0 . Londono scale imaging description: Mild soft plaque. Percent internal carotid artery stenosis: less than 50% stenosis. Vertebral artery: Flow direction is antegrade. Left side: (IV in place) Common carotid artery peak systolic velocity: 75 cm/sec. Internal carotid artery peak systolic velocity: 59 cm/sec. Internal carotid artery end diastolic velocity: 9 cm/sec. External carotid artery peak systolic velocity: 72 cm/sec. ICA/CCA peak systolic ratio: 0.8 . Londono scale imaging description: Normal. Percent internal carotid artery stenosis: None. Vertebral artery: Flow direction is antegrade. IMPRESSION: Normal on the left, less than 50% stenosis on the right at the internal carotid arteries proximally. Dictated by: Arnav Ellsi M.D. on 04/10/2018 at 10:52 Approved by: Arnav Ellis M.D. on 04/12/2018 at 10:48
--- NOTE | 2018-04-10 05:33 | PC.NURSE ---
Pt. did not sleep last night. Denies any back pain or other discomfort, states I have no pain at all, I just can't sleep. Ambulated in the hallway x2 this shift, denies any dizziness, [place]. Will cont. POc & monitor.
[2018-04-10 05:54] LABS: INR 3.7 (0.9-1.3)
[2018-04-10 06:06] LABS: Alanine Aminotransferase 28 IU/L (9-52); Albumin 4.2 g/dL (3.5-5.0); Albumin Globulin Ratio 1.3 (1.0-2.8); Alkaline Phosphatase 74 U/L (38-126); Aspartate Aminotransferase 34 IU/L (14-36); BUN Creatinine Ratio 16.7 (6-22); Bilirubin Total 0.6 mg/dL (0.2-1.3); Blood Urea Nitrogen 10 mg/dL (7-17); Calcium 9.6 mg/dL (8.4-10.2); Carbon Dioxide 28 mmol/L (22-32); Chloride 103 mmol/L (98-107); Estimated Glomerular Filt Rate > 60.0 mL/min (>60); Globulin 3.2 g/dL (1.7-4.1); Glucose 164 mg/dL (80-110); HEMOLYSIS < 15 (0-50); Magnesium 1.5 mg/dL (1.6-2.3); Potassium 4.4 mmol/L (3.4-5.1); Sodium 142 mmol/L (137-145); Total Protein 7.4 g/dL (6.3-8.2)
[2018-04-10 06:11] LABS: Hematocrit 38.4 % (36-46); Hemoglobin 12.4 g/dL (12.0-16.0); Mean Corpuscular HGB Conc 32.3 % (30-36); Mean Corpuscular Volume 89.7 fL (80-100); Platelet Count 262 X10^3/uL (150-400); Red Blood Cell Count 4.29 X10^6/uL (4.0-5.2); White Blood Cell Count 6.4 X10^3/uL (4.5-11.0)
[2018-04-10 06:31] LABS: Add Manual Diff / Slide Review YES
[2018-04-10 07:03] LABS: Neutrophils Absolute Manual 4928 /uL (3000-5900); Total Cells Counted 100
[2018-04-10 07:04] LABS: RBC Morphology Normal Morphology
[2018-04-10] MEDS: DORZOLAMIDE/TIMOLOL OPHTH 10 ML 1 DROPS EYE-BOTH ×2 (08:59→09:01)
[2018-04-10] MEDS: SERTRALINE 50 MG TABLET PO (09:00)
[2018-04-10] MEDS: LISINOPRIL 20 MG TABLET 40 MG PO (09:00)
[2018-04-10] MEDS: MAGNESIUM SULFATE 2 GM/50 ML PIGGYBACK IV (09:00)
[2018-04-10] MEDS: INSULIN ASPART 100 UNIT/ML INSULN PEN 6 UNIT SUBCUT ×3 (09:05→17:03)
[2018-04-10] MEDS: INSULIN ASPART 100 UNIT/ML INSULN PEN SUBCUT ×4 (09:06→22:01)
[2018-04-10] MEDS: PANTOPRAZOLE 20 MG TABLET PO (09:09)
--- NOTE | 2018-04-10 10:50 | PT.IPTN ---
Physical Therapy Treatment Note M2 PT-IP Current Condition Start: 04/09/18 10:48 Freq: NEEDED Status: Active Protocol: Document 04/09/18 10:50 LR (Rec: 04/09/18 11:10 [facility] [id number]) Physical Therapy Current Condition Current Condition Evaluation Date 04/09/18 Treatment Diagnosis unresponsive, weakness Weight Bearing Status Weight Bearing Status Full Weight Bearing M3 PT-IP Subjective Start: 04/09/18 10:48 Freq: NEEDED Status: Active Protocol: Document 04/10/18 10:50 AB (Rec: 04/10/18 11:36 AB [id number]) Subjective Physical Therapy Visit Type Type Treatment Note Visit Start Time 10:50 Visit Stop Time 11:13 Total Visit Minutes 23 Number of CLASSROOM TECHNOLOGY COACH Visits 0 Physical Therapy Visit Comments Patient Comments pt agreeable to do PT Therapy Pain Assessment Pain Present Pain Present Denied Pain M4 PT-IP Mobility and Gait Start: 04/09/18 10:48 Freq: NEEDED Status: Active Protocol: Document 04/10/18 10:50 AB (Rec: 04/10/18 11:36 AB [id number]) PT-Bed Mobility Assessment Supine to Sit Supine to Sit Standby Assistance Sit to Supine Sit to Supine Standby Assistance Scooting Scooting to Edge of Bed Standby Assistance Scooting Up and Down in Bed Independent PT-Transfer Assessment Sit to and From Stand Sit to and from Stand Standby Assistance Equipment Transfer Assistive Device Gait Belt Straight Cane Orthotic/Prosthetic Devices or Brace: No Transfers Transfer Destination Toilet Transfer Technique pt ambulated to the toilet using SPC Transfer Ability Level of Assist Standby Assistance Comments Mobility Comments BP monitored per doctor's order. found pt supine in bed . BP in supine: 151/90. instructed pt to sit on EOB and completed SBA. BP: 195/ 105; checked again after ~ 2 min: 179/102. pt requesting to use the toilet. instructed pt to sit to stand and completed SBA and used SPC for support: BP: 153/83 after 2 min of standin/81. pt ambulated to the toilet using SPC SBA and completed toileting without assist. ambulated towards the sink using SPC SBA and was able to maintain standing balance SBA using SPC while completing handwashing. pt ambulated back to bed BP sitting on EOB after toiletin/89. completed sit to supine SBA. Data Systems Manager waiting for pt for echo procedure outside pt's room and informed counter intelligence technician that pt is ready for him. M5 PT-IP Objective Assessments Start: 04/09/18 10:48 Freq: NEEDED Status: Active Protocol: Document 04/09/18 10:50 LR (Rec: 04/09/18 11:10 [facility] [id number]) Orientation Orientation/Cognition Level of Alertness Alert Gross Range of Motion Lower Extremity ROM Assessment Right Impaired Impairments RLE strength grossly 3-3+/5 at knee & hip; 5/5 for seated PF /DF testing M6 PT-IP Treatment Start: 04/09/18 10:48 Freq: NEEDED Status: Active Protocol: Document 04/09/18 10:50 LR (Rec: 04/09/18 11:10 [facility] [id number]) Physical Therapy Treatment Education Education Provided Safety M7 PT-IP Assessment and Plan Start: 04/09/18 10:48 Freq: NEEDED Status: Active Protocol: Document 04/10/18 10:50 AB (Rec: 04/10/18 11:36 AB [id number]) PT Summary Assessment and Plan Potential Rehabilitation Potential Good Summary Impairments Pain ROM Strength Balance Coordination Sensation Tone Cognition Bed Mobility Transfers Gait Activity Tolerance Progress Towards Goals Progressing Toward Goals Assessment Summary pt requiring SBA with mobility using SPC. pt with confusion and short term memory problems affecting safety awareness. pt lives in [place] and plans to go visit her daughter in [facility]. pt will need 24/7 assist due to decrease safety awareness. Goals Bed Mobility Goal Independent Transfer Goal Independent Gait Goal Independent Cane Gait Distance 150 Other Goals up/down stairs with rail with min A Days to Meet Goals 4 Frequency of Treatment Frequency Of Treatment Once a Day Treatment Plan Physical Therapy Treatment Plan Bed Mobility Training Transfer Training Gait Training Therapeutic Exercise Balance Retraining Discharge Planning Neuromuscular Re-ed Recommendations To Nursing Amount of Assist Needed 1 Person Assist Discharge Recommendations PT Discharge Recommendations Home with Assistance Home Health SNF Rehab
--- NOTE | 2018-04-10 10:55 | OT.IP.TRT ---
Occupational Therapy Treatment Note M2 OT-IP Current Condition Start: 04/09/18 13:07 Freq: Status: Active Protocol: Document 04/09/18 13:07 [facility] (Rec: 04/09/18 13:31 [facility] [id number]) Occupational Therapy Current Condition Current Condition Evaluation Date 04/09/18 Treatment Diagnosis Altered mental status Diagnosis Onset Date 04/08/18 Weight Bearing Status Weight Bearing Status Full Weight Bearing M3 OT- IP Subjective and Pain Start: 04/09/18 13:07 Freq: Status: Active Protocol: Document 04/10/18 10:32 [facility] (Rec: 04/10/18 10:55 [facility] [id number]) OT- Subjective Occupational Therapy Visit Type Type Treatment Note Visit Start Time 09:25 Visit Stop Time 09:55 Total Visit Minutes 30 Notes Per physician, pt clear to do activity as tolerated and also wanting orthostatic BP done. Occupational Therapy Visit Comments Patient Comments Pt agreeable to do more cognitive assessment. OT Pain Assessment Pain When Pain Assessed At Rest Pain Present Pain Present Denied Pain M4 OT- IP ADL's Start: 04/09/18 13:07 Freq: Status: Active Protocol: Document 04/09/18 13:07 [facility] (Rec: 04/09/18 13:31 [facility] [email or web address]) OT ADL-Grooming General Evaluation Grooming Ability Standby Assistance Areas Needing Assistance Retrieving/Set-up of Grooming Items Comments OT Grooming Comments Assist for set-up due to arthritis in hands. OT ADL-Oral Care General Eval Oral Care Ability Independent OT ADL-Dressing General Eval Lower Body Dressing Ability Minimal Assistance Comments OT Dressing Comments Pt not able to vahe right sock , pt states at home having increased difficulty to do so lately. OT ADL-Toileting Comments OT Toileting Comments Pt has catheter in. M5 OT- IP IADL's Start: 04/09/18 13:07 Freq: Status: Active Protocol: Document 04/09/18 13:07 [facility] (Rec: 04/09/18 13:31 [facility] [email or web address]) OT-Instrumental Activities of Daily Living Home Safety Awareness Ability to Problem Solve Emergency Able to Problem Solve Situations Medication Management Medication Management Comments Pt states does her own. Money Management Money Management Comments Pt states down her own, and pays bills through the bank. Meal Preparation Meal Preparation Comments Pt states does her own. Network Operations Specialist Network Operations Specialist Comments Pt does her own. Driving Driving Comments Pt states just drives during the day. M6 OT- IP Functional Cognition Start: 04/09/18 13:07 Freq: Status: Active Protocol: Document 04/10/18 10:32 [facility] (Rec: 04/10/18 10:55 [facility] [email or web address]) Cognitive Factors Limiting Selfcare Function Cognitive Ability Level of Alertness Alert Patient Orientation Name Date Year Day of Week Place Situation Attention Span Ability Capable of Focused Attention Capable of Sustained Attention Ability to Follow Commands Able to Follow One Step Commands Memory Description Immediate Impaired Short Term Impaired Safety Awareness Underestimates Need for Assistance Problem Solving Ability Unable to Identify Errors Needs Assist to Identify Solutions Executive Function Ability Unable to Switch Focus Unable to Filter Distractions Unable to Remember Details Cognitive Comments Cognitive Assessment Comments Pt scored 300 seconds on the [place] Making Part B and needing 5 cues to complete the task. Per [employer] a score on greater 180 seconds implies person greater chance to get into a car accident. At this time, recommended pt not to drive at thie time. GRAB SETTER just saw patient and pt did not recall that therapist was GRAB SETTER. Pt not able to recall information for swallowing needs, only able to recall 3/6 , after more education 5/6, and at the end only 2/6. OT- Vision and Hearing OT- Hearing Assessment OT- Hearing Assessment Use of Hearing Aids OT- Vision Assessment Visual Acuity Glasses All The Time M7 OT- IP Mobility and Balance Start: 04/09/18 13:07 Freq: Status: Active Protocol: Document 04/09/18 13:07 [facility] (Rec: 04/09/18 13:31 [facility] [email or web address]) OT-Transfer Assessment Sit to and From Stand Sit to and from Stand Contact Guard Assistance 1 Person Assistance Transfers Transfer Ability Contact Guard Assistance 1 Person Assistance Technique Transfer Destination Chair Transfer Technique Stand Step Pivot Devices Transfer Assistive Devices Gait Belt Front Wheeled Walker Comments Mobility Comments Pt needing vc to keep FWW close to her, pt tends to push harder with LUE due to slight weakness to RUE. OT- Balance Assessment Sitting Balance and Reactions Static Sitting Balance Ability Normal Dynamic Sitting Balance Ability Normal Standing Balance and Reactions Static Standing Balance Ability Fair Dynamic Standing Balance Ability Poor M8 OT- IP Objective Assessments Start: 04/09/18 13:07 Freq: Status: Active Protocol: Document 04/09/18 13:07 [facility] (Rec: 04/09/18 13:31 [facility] [email or web address]) OT Gross Range of Motion Upper Extremity Range of Motion Assessment Within Functional Limits OT Strength Comments Strength Comments RUE 4/5, Lue 4/5 left picker box operator stronger than right. OT- Coordination Assessment Upper Extremity Finger to Nose Test Bilateral UE Impaired Comments Coordination Comments When completed second time, able to direct finger to nose WFL. Decreased FMS for opening items for grooming needs. OT-Muscle Tone Assessment Muscle Tone WNL Yes OT Sensation Assessment Comments Summary Comments Intact for light touch, proprioception and kinesthesia . M9 OT- IP Assessment and Plan Start: 04/09/18 13:07 Freq: Status: Active Protocol: Document 04/10/18 10:32 [facility] (Rec: 04/10/18 10:55 [facility] [email or web address]) OT Summary Assessment and Plan Potential Rehabilitation Potential Good Analytic Complexity at Evaluation Low Summary OT Impairments Balance Coordination Functional Cognition Functional Mobility Grooming Dressing Toileting Bathing Toilet Transfers Shower Transfers Progress Towards Goals Slow Progress due to Medical Issues Slow Progress due to Cognition Assessment Summary Pt continues to have difficulty with short term memory and would benefit form short skilled rehab to increase overall activity tolerance and safety for ADL needs as prior pt lives alone. Goals Grooming Goal Independent Dressing Goal Standby Assistance Toileting Goal Standby Assistance Bathing Goal Contact Guard Assistance Toilet Transfer Goal Standby Assistance Shower Transfer Goal Standby Assistance Patient/Caregiver Education Goal Caregiver Independent Assisting Patient Days to Meet Goals 5 Frequency of Treatment Frequency Of Treatment Once a Day Treatment Plan OT Treatment Plan ADL Training Functional Cognition Training Functional Mobility Patient/Family Education Discharge Planning Discharge Recommendations OT Discharge Recommendations Home with 24/7 Assist SNF Rehab Other Discharge Recommendations Pending pt's disposition intially if family able to care for her home with assist otherwise may need short skilled rehab to be able to get to prior level of independence, as was living alone Home Equipment Needs [facility]tub [facility]
--- NOTE | 2018-04-10 11:53 | ST.IPIE ---
Care Team Visit Care Team Role Provider Type Coby Espino DO Emergency Provider Physician Specialty: Emergency Medicine Address: [address] [place] [address], [id number] Email: JUSTUS Allen Admit Provider Physician Attending Provider Specialty: Internal Medicine Address: [address] [place] [address], [id number] Email: Past Medical History (Last Updated 04/09/18 @ 00:47 by JUSTUS Allen) Hyperlipidemia (Acute Medical) GERD (gastroesophageal reflux disease) (Acute Medical) Chronic back pain (Acute Medical) Current use of alf anticoagulation (Acute Medical) Hypertension (Acute Medical) Status post CVA (Acute Medical) Insulin dependent diabetes mellitus (Acute Medical) ST IP Initial Evaulation Report MANAGER NURSING Clinical Swallow Evaluation Start: 04/10/18 10:31 Freq: Status: Active Protocol: Document 04/10/18 11:27 [facility] (Rec: 04/10/18 11:52 [facility] [email or web address]) Clinical Swallow Evaluation Session Time Visit Start Time 09:10 Visit Stop Time 09:40 Total Visit Minutes 20 Visit Information Visit Number Initial Swallow Evaluation Referral Referring Physician Dr. Ashby Reason for Referral AMS, Hx CVA Setting Assessment Location Acute Care Visit Type Note Type Initial Evaluation Next Note Type Next Note Type Treatment Note Patient Information Identification Type Name ID Card History 78-yr-old female admitted with alterned mental status, abrupt onset characterized by speech difficulties and glazed expression. Pt is from [place], here visiting family who brought her to ER when symptoms did not resolve at home. MD report dated 04/09/18 noted significant improvement with resolution of aphasic symptoms . MRI of same date revealed no evidence of acute infarction. No intracranial bleed or midline shift. Mild atrophy and mild periventricular white matter chronic ischemic microangiopathic changes. Family reports prior CVA 12 years ago, per H&P report. Additional PMHx: Hyperlipidemia GERD (gastroesophageal reflux disease) Chronic back pain Current use of alf anticoagulation Hypertension Status post CVA Insulin dependent diabetes mellitus Subjective Observations The pt was sitting up in chair , having just finished breakfast upon MANAGER NURSING's arrival. Nsg reported good tolerance of oral intake, and pt denied dysphagia symptoms. She reported regular diet, thin liquids as baseline. She appropriately greeted the MANAGER NURSING and participated well in the evaluation, following all verbal commands and conversing appropriately. Evaluation Liquids Trialed Thin Solids Trialed Dysphagia Advanced Regular Administration Type Cup Single Sip Cup Consecutive Sips Straw Self-Feeding Oral Impairment WNL Oral Strategies Upright at 90 degrees Oral Phase Comments Oral Peripheral Exam: All structures WNL of strength, coordination and ROM. Pt has natural teeth, many capped and in good condition; missing lower left molar only. All structures symmetrical. Hyolaryngeal elevation WNL, anterior excursion mildly reduced, WFL. Oral Phase is WNL with adequate mastication, bolus formation, timely swallow trigger, and good oral clearance. Pharyngeal Impairment WNL Pharyngeal Strategies Sitting Upright (90 deg) Small Bites and Sips Pharyngeal Phase Comments No overt s/sx of aspiration observed with all trials. Pt maintained clear voice throughout the evaluation. Findings Dysphagia Type Swallow function WNL Impressions The pt presents with normal swallow function. General aspiration precautions prescribed. Pt was educated on these precautions and verbalized understanding. Diet Recommendations Liquids Order Thin Diet Order Regular Medication Recommendations As Tolerated Aspiration Precautions Recommended Precautions Upright at 90 Degrees Small Bites/Sips Additional Precautions Minimize distractions during oral intake. Treatment Plan Placement Recommendations after Home Discharge Appropriate for Therapy Yes: Evaluate cognition & treat as indicated Therapy Recommendations No dysphagia treatment warranted at this time. However, the pt has demonstrated below normal cogntive skills on screening tests (see OT report). After consultation with OT, cognitive evaluation is recommended with tx to follow as indicated. Dysphagia Goals 1. Pt will consistently tolerate regular diet and thin liquids without overt s/sx of aspiration. 2. Pt will participate in evaluation of cognitive communication skills. Goals to be determined based on findings. MANAGER NURSING Follow Up Cognitive evaluation today or tomorrow
[2018-04-10] MEDS: SODIUM CHLORIDE 0.9% FLUSH 10 ML IV ×2 (12:57→20:40)
--- NOTE | 2018-04-10 15:35 | PC.NURSE ---
Pt was forward about being discharged to home. Explained to her that she should talk to the Dr. spears and she what she would like to do. Pt had her echo and carotid doppler today. She is 1pa to bathroom with walker. Orthostatic bp done earlier supine 151/90 sitting 195/105 after 2 minutes down to 179/102, standing 158/83 and after 2 minutes up to 188/81, After a few minutes of sitting pts bp down to 150/89. She is sitting up in her chair now and is comfortable.
--- NOTE | 2018-04-10 16:17 | PC.NURSE ---
Addendum entered by Cassidy Hearn R.N. 04/10/18 22:11: HS CBG = 227. S/S coverage as per orders given. Uneventful evening Ambulated in hallway w/staff. Tele NSR per ICU staff. Call light w/in reach, chair alarm on for pt safety. Continue w/plan of care. Original Note: Pt sitting in chair. Denies any discomfort. Lungs clear, SpO2 96% RA HL LAC intact/patent. Pt waiting fo for possible D/C home Call light w/in reach.
[2018-04-10] MEDS: BRINZOLAMIDE OPHTH 10 ML 1 DROPS EYE-BOTH (20:38)
[2018-04-10] MEDS: LATANOPROST 0.005% OPHTH 2.5 ML 1 DROPS EYE-BOTH (20:39)
--- NOTE | 2018-04-10 23:25 | P.PN_ITS ---
Subjective Date Patient Seen: 04/10/18 Interval history: Lyubov Prater is an 78-year-old female with a past medical history significant for hyperlipidemia, hypertension, previous CVA on warfarin who presented due to presyncopal/syncopal episode. The patient is resting in bed comfortably and in no acute distress. She is eager to go home. Again, explained to the patient that her warfarin dose was incorrect upon admission and that it may take several days to adjust. She seems to have short term memory recall trouble. She denies headache, chest pain, shortness of breath, abdominal pain, nausea, vomiting, dysuria, diarrhea or constipation. She is voiding and eliminating without difficultly. She is ambulating with assistance. Exam Vital Signs (past 8 hours): - 04/10/18 15:34 04/10/18 16:09 04/10/18 20:57 Temperature 97.7 F 97.6 F Pulse Rate 84 83 Respiratory Rate 20 20 Blood Pressure 153/74 H 137/72 Blood Pressure [Orthostatic Lying] 151/90 H Blood Pressure [Orthostatic Sitting] 195/105 H Blood Pressure [Orthostatic Standing] 158/83 H Pulse Oximetry 100 96 Oxygen Delivery Method Nasal Cannula Oxygen Flow Rate 0 Narrative Exam Narrative: General: Elderly female sleeping in bed but arousable, in no acute distress, well-developed, well-nourished, appropriately interactive. HEENT: Normocephalic, atraumatic. External ears without defect. Pupils equal, round, and reactive to light. Anicteric sclerae, moist conjunctivae, and no lid lag. Neck: Supple with full range of motion. No lymphadenopathy or thyromegaly. Cardiovascular: Regular rate and rhythm without murmurs, rubs, or gallops appreciated Pulmonary: Clear to auscultation bilaterally without crackles, wheezes, or rhonchi. Normal respiratory effort with no use of accessory muscles. Abdomen: Soft, thin, bowel sounds present, nontender, nondistended. No hepatosplenomegaly or masses appreciated. Extremities: No clubbing, cyanosis, or edema. Skin: Normal temperature, turgor, and texture; no rash, ulcers, or subcutaneous nodules appreciated. Neurological: Cranial nerves grossly intact. Psychiatric: Normal mood and affect. Alert and oriented to person, place, and time. Short term memory recall deficit. Objective Labs Result Diagrams: 04/10/18 05:34 04/11/18 05:28 Labs: Laboratory Results - last 24 hr 04/10/18 04/10/18 04/10/18 05:34 05:34 05:34 WBC 6.4 RBC 4.29 Hgb 12.4 Hct 38.4 MCV 89.7 MCH 29.0 MCHC 32.3 RDW 14.0 Plt Count 262 Neut % (Auto) Not Reportable Lymph % (Auto) Not Reportable Stokes % (Auto) Not Reportable Eos % (Auto) Not Reportable Baso % (Auto) Not Reportable Total Counted 100 Seg Neutrophils % 77.0 H Lymphocytes % (Manual) 13.0 L Monocytes % (Manual) 10.0 Neutrophils # (Manual) 4928 RBC Morphology Normal morphology PT 44.0 H D INR 3.7 H Sodium 142 Potassium 4.4 Chloride 103 Carbon Dioxide 28 BUN 10 Creatinine 0.60 Estimated GFR > 60.0 BUN/Creatinine Ratio 16.7 Glucose 164 H Calcium 9.6 Magnesium 1.5 L Total Bilirubin 0.6 AST 34 ALT 28 Alkaline Phosphatase 74 Total Protein 7.4 Albumin 4.2 Globulin 3.2 Albumin/Globulin Ratio 1.3 Assessment & Plan Plan: Assessment/Plan Narrative: 1. Altered mental status, present on admission. Improving. -History of prior stroke 12 years ago for which the patient is on warfarin and simvastatin. -Patient presented with abrupt onset of symptoms 5 hours prior to arrival to ED with speech impediment and expressive aphasia but able to follow commands. -CT and MRI brain did not reveal any acute intracranial abnormalities. There were age related microvascular ischemic changes present and possibly contributing to mild cognitive impairment/short term memeory recall. May consider SLUMS eval. -Continue PT/OT/ST. -Echo did not demonstrate any valvular or cardiac origins for AMS. 2. Hypertension, present on admission. Stable. -The patient was given labetalol 10 mg the emergency department for tachycardia and hypertension. -Allowed for permissive hypertension up to 180 mm Hg. -Enalaprilat 0.625 mg IV q6 hours as needed blood pressure greater than 180. 3. Long-term use of anticoagulation, present on admission. Active. -The patient has been on warfarin. Intial INR 3.0. -Head CT is negative for bleed, no other abnormal bleeding or bruising is identified. -Error in med reconciliation and patient received 6 mg rather than 1 mg. Hold warfarin. Conitnue daily INR. 3. Diabetes type 2, present on admission. Stable. -The patient is on Lantus and lispro as home medications. -Patient remains altered despite normalization of blood sugar following a hypoglycemic event -Accu-Cheks are ordered q.6 hours and Insulin sliding scale is ordered per medium dose protocol -Will also check hemoglobin A1c to ascertain level of glycemic control, pending. 5. Chronic back pain -Patient with history of degenerative disc disease with him reporting plan for surgical intervention. -At baseline patient with altered gait using a cane to ambulate -The patient has used oxycodone and CBD pills for pain management. -We will follow the patient and assess the need for pain management and intervention Disposition: Depending on stabilization of anticogulation likely discharge in 1- 2 days with close monitoring.
[2018-04-11 02:00] VITALS: BP 145/87; BP 149/108; BP 157/108; PULSE 88; PULSE 94; PULSE 95
[2018-04-11 03:00] VITALS: BP 145/87; PULSE 88; RESP 18; O2SAT 95
[2018-04-11] MEDS: PANTOPRAZOLE 20 MG TABLET PO (05:41)
[2018-04-11 05:49] LABS: Prothrombin Time 34.8 SECONDS (10.1-12.7)
[2018-04-11 05:57] LABS: Blood Urea Nitrogen 18 mg/dL (7-17); Calcium 9.2 mg/dL (8.4-10.2); Carbon Dioxide 28 mmol/L (22-32); Chloride 103 mmol/L (98-107); Estimated Glomerular Filt Rate > 60.0 mL/min (>60); Glucose 188 mg/dL (80-110); HEMOLYSIS 18 (0-50); Magnesium 1.6 mg/dL (1.6-2.3); Potassium 4.1 mmol/L (3.4-5.1); Sodium 141 mmol/L (137-145)
[2018-04-11 08:00] VITALS: BP 140/93; PULSE 93; RESP 18; TEMP 37.2; O2SAT 95
[2018-04-11] MEDS: METFORMIN XR 500 MG TABLET PO (08:17)
[2018-04-11] MEDS: LISINOPRIL 20 MG TABLET 40 MG PO (08:17)
[2018-04-11] MEDS: SERTRALINE 50 MG TABLET PO (08:18)
[2018-04-11] MEDS: INSULIN ASPART 100 UNIT/ML INSULN PEN 6 UNIT SUBCUT (08:19)
[2018-04-11] MEDS: INSULIN ASPART 100 UNIT/ML INSULN PEN SUBCUT (08:20)
[2018-04-11] MEDS: DORZOLAMIDE/TIMOLOL OPHTH 10 ML 1 DROPS EYE-BOTH (08:21)
[2018-04-11] MEDS: SODIUM CHLORIDE 0.9% FLUSH 10 ML IV (08:21)
--- NOTE | 2018-04-11 10:20 | OT.IP.TRT ---
Occupational Therapy Treatment Note M3 OT- IP Subjective and Pain Start: 04/09/18 13:07 Freq: Status: Active Protocol: Document 04/11/18 10:20 PJM (Rec: 04/11/18 12:06 PJM [id number]) OT- Subjective Occupational Therapy Visit Type Type Treatment Note Visit Start Time 09:45 Visit Stop Time 10:20 Total Visit Minutes 35 Occupational Therapy Visit Comments Patient Comments I really hope I can get out of here today. Patient/Caregiver Goals to go to daughter's house today OT Pain Assessment Pain When Pain Assessed After Treatment Pain Present Pain Present Denied Pain M4 OT- IP ADL's Start: 04/09/18 13:07 Freq: Status: Active Protocol: Document 04/11/18 10:20 PJM (Rec: 04/11/18 12:06 PJM NR) OT ADL-Grooming General Evaluation Grooming Ability Independent Areas Needing Assistance Combing/Brushing Hair Face Washing Comments OT Grooming Comments standing at sink without a device, no loss of balance noted OT ADL-Oral Care General Eval Oral Care Ability Independent Comments Oral Care Comments standing at sink without a device, no loss of balance noted OT ADL-Dressing General Eval Upper Body Dressing Ability Independent Lower Body Dressing Ability Independent Areas Needing Assistance Underpants/Brief Socks OT ADL-Toileting General Evaluation Toileting Ability Independent Areas Needing Assistance Perform Perineal Hygiene Comments OT Toileting Comments pt needed housekeeping assist for bathroom cleanup after episode of unexpected diarrhea , but was indep with praveena care OT ADL-Bathing Comments OT Bathing Comments did not occur M6 OT- IP Functional Cognition Start: 04/09/18 13:07 Freq: Status: Active Protocol: Document 04/11/18 10:20 PJM (Rec: 04/11/18 12:06 PJ [id number]) Cognitive Factors Limiting Selfcare Function Cognitive Ability Level of Alertness Alert Attention Span Ability Capable of Focused Attention Capable of Sustained Attention Ability to Follow Commands Able to Follow One Step Commands Cognitive Tests ACL Administered Nicholas Med Box Screening with pt scoring 5.5/ 6.0. She was able to problem solve unfamiliar medication box set up with one verbal cue and no other errors. Pt reports using mail order for most meds at home. Cognitive Comments Cognitive Assessment Comments Per review of chart notes and discussion with speech pathologist, pt's functional cognition is improving daily and pt may be approaching her baseline level of function. Note MRI negative for any acute changes. OT- Vision and Hearing OT- Hearing Assessment OT- Hearing Assessment WFL OT- Vision Assessment Visual Acuity WFL Glasses All The Time Vision Assessment Comments Pt able to read medication labels today with her glasses; she reports occasional use of magnifier at home for very small print M7 OT- IP Mobility and Balance Start: 04/09/18 13:07 Freq: Status: Active Protocol: Document 04/11/18 10:20 PJM (Rec: 04/11/18 12:09 PJM [id number]) OT-Transfer Assessment Sit to and From Stand Sit to and from Stand Independent OT- Gait Assessment Gait Gait Assistance Required: Standby Assistance Distance (Feet) 15 Assistive Devices Assistive Device None Comments Gait Ability Comments Pt states she ambulates without a device in her house and uses cane only in community. She ambulated to sink and back without a device and no LOB noted. M9 OT- IP Assessment and Plan Start: 04/09/18 13:07 Freq: Status: Active Protocol: Document 04/11/18 10:20 PJM (Rec: 04/11/18 12:06 PJM [id number]) OT Summary Assessment and Plan Summary Progress Towards Goals Progressing Toward Goals Safe For Discharge Goals Met Assessment Summary Pt SBA to independent with basic self care tasks in hospital room setting. Per review of chart notes and discussion with speech pathologist, pt's functional cognition is improving daily and pt may be approaching her baseline level of function. She was able to complete unfamiliar medbox activity with one verbal cue today. She recalled some activities completed in previous OT sessions and appropriately asked about results of her carotid study. All acute care OT goals achieved for this admission. Pt plans to d/c to her daughter's house for several days before returning home to [place] where she lives alone. Pt states her sister and brother in law live about 1 mile away and pt also has [employer] and cell phone for emergency use at home. MD will need to clear pt for resuming driving. Frequency of Treatment Frequency Of Treatment Discharge Discharge Recommendations OT Discharge Recommendations Home with Assistance Other Discharge Recommendations Pt will d/c to daughter's home
--- NOTE | 2018-04-11 11:00 | PC.NURSE ---
Addendum entered by Marsha Barrios R.N. 04/11/18 11:40: DC - discussed change in medications, new scripts provided, reviewed dc instructions with pt, hep lock and tele dc'd, did ambul w/phys therapy earlier and gait steady, when family arrived, belongings packed, including eye drops, hearing aid, clothing, glasses, cell phone, tablet and chargers, tsf to and escorted to family car. Original Note: AM NOTE - alert, no neuro deficits, smile, stars specialist equal, no weakness, speech clear and responses are appropriate, ra 97%, hr 90, wearing hearing aid x1 l ear, assist standby w/fww to br void, no dizziness, gait steady,ret to chair.
--- NOTE | 2018-04-11 11:12 | ST.IP.CME ---
Past Medical History (Last Updated 04/09/18 @ 00:47 by JUSTUS Allen) Hyperlipidemia (Acute Medical) GERD (gastroesophageal reflux disease) (Acute Medical) Chronic back pain (Acute Medical) Current use of ad terminal makeup operator anticoagulation (Acute Medical) Hypertension (Acute Medical) Status post CVA (Acute Medical) Insulin dependent diabetes mellitus (Acute Medical) Speech-Language Pathology Cognitive Evaluation MANAGER HEAVY DUTY Cognitive/Memory Evaluation Start: 04/10/18 10:31 Freq: Status: Active Protocol: Document 04/11/18 11:01 [facility] (Rec: 04/11/18 11:12 [facility] [id number]) Evaluation of Cognition Session Time Total Visit Minutes 25 Next Note Type Next Note Type Discharge Summary Subjective Subjective Patient seen sitting up in chair in the room. No family member present initial, but her grandchildren arrived retirement through the session. Dr. Grullon was in prior to assessment and stated patient will likely d/c today. Patient lives alone in [place], but is visiting family in [facility]. - - Cognition Cognitive Assessment Cognitive Assessment Completed the Pavel Cognitive Assessment following concern for mild neurocognitive impairment identified by the Occupational Therapist who completed assessments yesterday. The patient scored 26/30 on the MOCA today losing points for the following tasks: copying a line drawing, incorrectly drawing long and short hand of a clock, sentence repetition, and delayed recall (able to recall 4/5 items). According to this test, a score of 26 and greater is considered normal. The patient feels she is back to her baseline cognitively. - Memory - Findings Cognitive/Memory Impressions Results of MOCA indicate normal cognitive function. Patient feels she is back at her baseline and is safe to go home independently. Patient will likely d/c from hospital today. No complaints of difficulty swallowing. No dysphagia observed on swallow evaluation yesterday. Recommendations Recommendations No further ST warranted. Discharge patient from speech therapy at this time.
--- NOTE | 2018-04-11 11:38 | PT.IPTN ---
Physical Therapy Treatment Note M2 PT-IP Current Condition Start: 04/09/18 10:48 Freq: NEEDED Status: Active Protocol: Document 04/09/18 10:50 LR (Rec: 04/09/18 11:10 [facility] [id number]) Physical Therapy Current Condition Current Condition Evaluation Date 04/09/18 Treatment Diagnosis unresponsive, weakness Weight Bearing Status Weight Bearing Status Full Weight Bearing M3 PT-IP Subjective Start: 04/09/18 10:48 Freq: NEEDED Status: Active Protocol: Document 04/11/18 11:28 SA (Rec: 04/11/18 11:38 SA [id number]) Subjective Physical Therapy Visit Type Type Treatment Note Visit Start Time 11:05 Visit Stop Time 11:23 Total Visit Minutes 18 Number of TELETYPEWRITER OPERATOR Visits 1 Physical Therapy Visit Comments Patient Comments Pt seated up in chair and dressed, to d/c this morning, family present. Therapy Pain Assessment Pain When Pain Assessed During Mobility Pain Present Pain Present Denied Pain M4 PT-IP Mobility and Gait Start: 04/09/18 10:48 Freq: NEEDED Status: Active Protocol: Document 04/11/18 11:28 SA (Rec: 04/11/18 11:38 SA [id number]) PT-Transfer Assessment Sit to and From Stand Sit to and from Stand Standby Assistance Equipment Transfer Assistive Device Straight Cane Orthotic/Prosthetic Devices or Brace: No Transfers Transfer Destination Chair Transfer Technique Stand Step Pivot Transfer Ability Level of Assist Standby Assistance Comments Mobility Comments PT BP prior to ambulation 142/ 92, BP after ambulation 151/82 . Pt denies dizziness and pain with transfers and gait. Gait Assessment Gait Gait Assistance Required: Standby Assistance Distance (Feet) 100 Assistive Devices Assistive Device Straight Cane Gait Deviations General Gait Pattern Decreased Stride Length Factors Limiting Gait Function Factors Limiting Gait Function Decreased Activity Tolerance Decreased Strength Poor Safety Awareness Comments Gait Comments Pt demonstrated good use of SPC, after it was adjusted to correct height. Gait training in hallway x 100 feet with pt able to carry on conversation during gait without LOB. M5 PT-IP Objective Assessments Start: 04/09/18 10:48 Freq: NEEDED Status: Active Protocol: Document 04/09/18 10:50 LR (Rec: 04/09/18 11:10 [facility] [id number]) Orientation Orientation/Cognition Level of Alertness Alert Gross Range of Motion Lower Extremity ROM Assessment Right Impaired Impairments RLE strength grossly 3-3+/5 at knee & hip; 5/5 for seated PF /DF testing M6 PT-IP Treatment Start: 04/09/18 10:48 Freq: NEEDED Status: Active Protocol: Document 04/11/18 11:28 SA (Rec: 04/11/18 11:38 [id number]) Physical Therapy Treatment Exercises Exercises Ankle Pumps Education Education Provided Safety Other Treatments Other Treatment Performed Education for use of SPC, frequent movement through out the day. M7 PT-IP Assessment and Plan Start: 04/09/18 10:48 Freq: NEEDED Status: Active Protocol: Document 04/11/18 11:28 SA (Rec: 04/11/18 11:38 [id number]) PT Summary Assessment and Plan Potential Rehabilitation Potential Good Summary Assessment Summary Pt to d/c to daughter's home this AM where she will have 24 /7 SUP from family prior to going back home to [place]. Pt demonstrates safe use of SPC, occasional cues for safety awareness with mobility tasks. Frequency of Treatment Frequency Of Treatment Once a Day Treatment Plan Physical Therapy Treatment Plan Bed Mobility Training Transfer Training Gait Training Therapeutic Exercise Balance Retraining Discharge Planning Neuromuscular Re-ed Recommendations To Nursing Amount of Assist Needed 1 Person Assist Discharge Recommendations PT Discharge Recommendations Home with Assistance Home Health SNF Rehab
--- NOTE | 2018-04-11 15:41 | PM.DS.1 ---
History of Present Illness Date Patient Seen: 04/11/18 Time Patient Seen: 09:30 Chief complaint: Unresponsive Narrative: History of Present Illness Date Patient Seen: 04/08/18 Time Patient Seen: 23:20 Chief complaint: Unresponsive Narrative: This is an 78-year-old female patient who was brought into the ER by family with complaints of altered mental status. The patient is presently visiting from [facility] then had an abrupt onset of altered mental status approximately 5 hr ago. The patient was called to dinner by family she stood up from her chair and her son reports that she ?just there and had a grimace on her face?. The patient slumped back into the chair with no associated trauma or injury. The patient had no seizure activity or facial drooping. The family reports she had difficulty speaking and has a history of diabetes . The family checked blood sugar found her glucose level to be 70 mg/dL and gave her orange juice and a sandwich however the patient had a difficult time holding the glass and was tremulous. The patient did not improve following eating and continued to have worsening difficulty speaking appearing to be able to understand and follow commands but per the family felt she could not express herself. Patient has a history of a stroke 12 years ago for which she has been on warfarin and presently has an INR of 3.0 and no residual neurological deficits. The family also says that prior to give the patient had taken a CBD pill for chronic back pain. They report no other prodromal symptoms such as headache complaints of dizziness or chest pain and no shortness of breath. The family reports the patient made a statement that ?I am dying?. In the ER the patient had no apparent lateralizing symptoms of stroke but continued to be altered. EMS obtained a glucose level of 60 and she has been given additional dextrose. She also has been taking oxycodone for pain and was given Narcan both no change in sensorium. She was hypertensive and tachycardic given labetalol 10 mg as well as Ativan. Patient has additional history of recurrent UTIs and has a catheter placed with urine sent for culture. He states the patient's normal baseline is independent in all ADLs but has had prior back surgery with degenerative disc disease and has had more difficulty ambulating requiring the assistance of a cane. Discharge Providers Date of admission: 04/08/18 22:39 Consults: 04/09/18 00:05 Consult to Discharge Planning Routine Comment: Consult to Occupational Therapy Evaluate & Treat Comment: Physician Instructions: Evaluate and treat Consult to Physical Therapy Evaluate & Treat Comment: Physician Instructions: Evaluate and Treat 04/09/18 00:06 Consult to Dietitian, Adult Routine Comment: Reason For Exam: Heladio score 04/09/18 10:44 Consult to Speech Therapy Evaluate & Treat Comment: Physician Instructions: Evaluate and treat Discharge provider: Milton Copeland DO Discharge Date: 04/11/18 Summary Discharge Diagnosis: ALTERED MENTAL STATUS METABOLIC ENCEPHALOPATHY DEMENTIA HTN PER HX DM2 PER HX COUMADIN COAGULOPATHY Hospital Course: PATIENT REPORTEDLY WAS BROUGHT TO THE ED WITH ALTERED MENTAL STATUS THIS WAS LIKELY RELATED TO LOW BLOOD GLUCOSE LEVEL HER WORK UP WHICH INCLUDED A MRI AND ECHO WELL CTA NECK WERE NEGATIVE SHE IS BACK AT BASELINE AND HER VITALS REMAINS STABLE SHE WILL BE DC TO HOME AND FOLLOW WITH HER PCP OUTPATIENT AT THIS FOR FURTHER W/U INDICATED Status at Discharge Functional status at discharge: independent ambulation Overall status at discharge: patient is back to baseline Time Spent with Patient Greater than 30 minutes Exam Vital Signs (past 8 hours): - 04/11/18 08:00 Temperature 99 F Pulse Rate 93 H Respiratory Rate 18 Blood Pressure 140/93 H Pulse Oximetry 95 Oxygen Delivery Method Nasal Cannula Oxygen Flow Rate 0 Narrative Exam Narrative: NO ACUTE DISTRESS. PATIENT IS ALERT ORIENTED X3. VITAL SIGNS STABLE HEAD ATRAUMATIC NORMOCEPHALIC NECK : SUPPLE WITHOUT ADENOPATHY NO CAROTID BRUITS EYE: EOMI, PERRLA, NORMAL CONJUNCTIVA; NO JAUNDICE CHEST: REGULAR RATE. NO RUBS. PMI IS NON DISPLACED. NO MURMURS; NORMAL S1-S2 PULMONARY: DECREASED BS OVER THE BASES. MILD BIBASILAR CRACKLES NOTED; NO INCREASED DULLNESS TO PERCUSSION ABDOMEN: SOFT. NONTENDER. NONDISTENDED. BOWEL SOUNDS ARE PRESENT IN ALL 4 QUADRANTS. NO MASS. EXTREMITIES: NO EDEMA.. NO CYANOSIS CLUBBING NOTED. NEURO: CRANIAL NERVES 2-12 GROSSLY INTACT. NO FOCAL NEUROLOGICAL DEFICIT NOTED. MSK: NORMAL RANGE OF MOTION FOR AGE. NO JOINT EFFUSION. SKIN: NORMAL FOR ETHNICITY; NO ECCHYMOSIS. NO LESION. GOOD TURGOR.; NO RASHES : NORMAL EXTERNAL GENITALIA. PSYCH : APPROPRIATE MOOD AND AFFECT. ALERT AWAKE ORIENTED X3 Objective Labs Result Diagrams: 04/10/18 05:34 04/11/18 05:28 Labs: Laboratory Results - last 24 hr 04/11/18 04/11/18 05:28 05:28 PT 34.8 H D INR 3.0 H Sodium 141 Potassium 4.1 Chloride 103 Carbon Dioxide 28 BUN 18 H Creatinine 0.60 Estimated GFR > 60.0 BUN/Creatinine Ratio 30.0 H Glucose 188 H Calcium 9.2 Magnesium 1.6 Discharge Plan Discharge Plan Patient Disposition: Home Discharge comment: DC HOME TODAY ACT JESSICA CARDIAC/DISBETIC DIET F/U WITH PCP 3-10 DAYS Discharge Med Rec/Prescriptions Prescriptions: New aspirin [Aspir-81] 81 mg tablet,delayed release (DR/EC) 81 mg PO DAILY Qty: 60 RF: 0 Continue tramadol 50 mg tablet 1 - 2 tab PO QID PRN (Reason: Pain, Moderate) RF: 0 simvastatin 40 mg tablet 40 mg PO DAILY RF: 0 warfarin 3 mg tablet 3 mg PO QMWF RF: 0 nystatin 100,000 unit/gram powder 1 dose Topical BID PRN (Reason: moist) RF: 0 sertraline 50 mg tablet 50 mg PO DAILY RF: 0 brinzolamide 1 % drops,suspension 1 drp EYE-BOTH BEDTIME RF: 0 omeprazole 20 mg capsule,delayed release(DR/EC) 20 mg PO DAILY RF: 0 dorzolamide-timolol 22.3-6.8 mg/mL drops 1 drp EYE-BOTH DAILY RF: 0 lisinopril 40 mg tablet 40 mg PO DAILY RF: 0 metformin 500 mg tablet extended release 24 hr 1 tab PO BID RF: 0 insulin lispro 100 unit/mL insulin pen 6 units subcut TID RF: 0 vitamins A,C,F-miht-yrmybf [PreserVision AREDS] 7,160-113-100 iyoo-[id number] Tablet 1 tab PO BID RF: 0 latanoprost 0.005 % drops 1 drp EYE-BOTH BEDTIME RF: 0 cranberry 400 mg Capsule 400 mg PO DAILY RF: 0 cholecalciferol (vitamin D3) [Vitamin D3] 1,000 unit Tablet,Chewable 1,000 unit PO BID RF: 0 [id number]-epa-fish oil [[employer]-3 Fish Oil] 300-1,000 mg Capsule 1 tab PO BID RF: 0 melatonin 10 mg Tablet 10 mg PO BEDTIME PRN (Reason: Sleep) RF: 0 warfarin 1 mg Tablet 1 mg PO QTUTHSA RF: 0 Changed insulin glargine [Lantus Solostar U-100 Insulin] 100 unit/mL (3 mL) insulin pen 15 unit subcut BID Qty: 0 RF: 0 Provider Discharge Instructions Diet: Carb-consistent/Diabetic, Low-fat and Low-cholesterol Skin/Wound/Dressing Care Report to your healthcare provider any signs of infection, such as:: chills, fever, night sweats, increased pain, unusual drainage and unusual redness Visit Report/Discharge Packet Instructions: DI for Transient Ischemic Attack, DI for Hypoglycemia, DI for Altered Mental Status Visit Report Forms: Stroke Signs & Symptoms Discharge Data Attending Provider: Nj José Admit Date/Time: 04/08/18 22:39 Discharges patient from system. Discharge Date/Time: 04/11/18 11:48
== END 2018-04-11 11:48 | disposition home or self-care (01) ==
LOC: ED 22:19 → AC 04-09 10:37
PROVIDERS: Internal Medicine; Admitting Provider Nurse Practitioner Adult Health; Emergency Provider Emergency Medicine; Visit Provider Nurse Practitioner Adult Health
DX: R41.82 Altered mental status, unspecified (principal); G93.41 Metabolic encephalopathy; E78.5 Hyperlipidemia, unspecified; K21.9 Gastro-esophageal reflux disease without esophagitis; Z79.01 Long term (current) use of anticoagulants; I10 Essential (primary) hypertension; G89.29 Other chronic pain; M54.9 Dorsalgia, unspecified; E11.9 Type 2 diabetes mellitus without complications; Z79.4 Long term (current) use of insulin; F03.90 Unspecified dementia, unspecified severity, without behavioral disturbance, psychotic disturbance, mood disturbance, and anxiety
CPT/HCPCS: 36415; 36591; 36600; 51701; 70450; 70496; 70498; 70551; 71045; 80048; 80053; 80305; 80320; 81001; 82805; 82962; 83036; 83605; 83735; 83880; 84146; 84443; 84484; 85025; 85610; 85730; 87040; 87086; 92610; 93005; 93880; 94762; 96361; 96374; 96375; 97116; 97127; 97162; 97165; 97530; 97535; 99281; 99285; G0378; C8929; J2060; J2310; Q9967